=== PATIENT | female | born 1945 | race Caucasian/White ===

== ENCOUNTER 2016-05-10 14:24 | Inpatient (IN) | payer MEDICARE ==
[~2016-05-10] VITALS: Ht 162.6 cm; Wt 54.7 kg
[2016-05-10] VITALS (10 sets, daily range): BP systolic 105–202; BP diastolic 51–138; PULSE 114–150; RESP 14–21; TEMP 93–99.2; O2SAT 92–98
[~2016-05-10 14:24] MED LIST: ASPI325T PO; CIPR500T4 PO; DIGO0.12 PO
[2016-05-10] MEDS ORDERED: SODIUM CHLOR 0.9% 1000 ML INJ 1,000 ML IV SCH ×3 (14:37→18:02)
--- NOTE | 2016-05-10 14:42 | PD ---
HPI Chief Complaint: FALL Time Seen by Provider: 14:42 Travel History International Travel<30 days: No Contact w/Intl Traveler<30days: No History of Present Illness HPI 70-year-old female with a history of atrial fibrillation and prior CVA is brought to the emergency department by EMS for evaluation of fall 3 days ago. The patient states that 3 days ago she was in a bank parking lot taking a walk when she accidentally fell landing on her left knee and hitting her face on the ground. She denies loss of consciousness. States she is not sure why she fell , denies any preceding symptoms of dizziness, chest pain, weakness. Denies tripping over anything. States that EMS came out at the time that she fell and wanted her to come to the emergency room but she refused care and instead went home to her apartment. States that once she got home to her apartment her left knee gave out on her causing her to fall again at home and she has since been on the ground at home for the past 3 days. States that she could not get up due to the severe pain in her left knee. States that she has pain in her left knee and is complaining of feeling cold. Otherwise denies any complaints. Denies any headache, lightheadedness, dizziness, nausea, vomiting, diarrhea, abdominal pain, chest pain, shortness of breath, numbness or tingling. Denies any anticoagulation. PCP is in [place]. No other complaints. PFSH Past Medical History Arthritis: Yes Atrial Fibrillation: Yes Anxiety: Yes Depression: No Heart Rhythm Problems: Yes (ATRIAL FIB.) Cancer: No High Cholesterol: Yes Chest Pain: No Congestive Heart Failure: No Cerebrovascular Accident: Yes Diabetes: No Diminished Hearing: No Endocrine: No GERD: No Genitourinary: No Hepatitis: No Hiatal Hernia: Yes Hypertension: Yes (STATES SHE BELIEVES SHE DOES AT TIMES) Immune Disorder: No Musculoskeletal: Yes Neurologic: Yes Psychiatric: Yes Reproductive: No Respiratory: No Migraines: No Seizures: No Thyroid Disease: No Ulcer: Yes Menopausal: Yes Past Surgical History Abdominal Surgery: No AICD: No Appendectomy: Yes Arteriovenous Shunt: No Cardiac Surgery: No Ear Surgery: No Endocrine Surgery: No Eye Surgery: No Genitourinary Surgery: No Gynecologic Surgery: Yes (HYSTERECTOMY) Hysterectomy: Yes (1985) Insulin Pump: No Joint Replacement: Yes (LEFT HIP) Oral Surgery: No Pacemaker: No Thoracic Surgery: No Other Surgery: Yes (LEFT FEMUR FX 04/29/11 FROM FALL) Social History Alcohol Use: No Tobacco Use: Yes Substance Use: No Allergies-Medications (Allergen,Severity, Reaction): Coded Allergies: Benadryl (Verified Allergy, Mild, hives, 07/26/11) Sulfa (Verified Allergy, Mild, HIVES, 07/26/11) Uncoded Allergies: antihihistamines (Allergy, Mild, hives, 05/02/11) Reported Meds & Prescriptions Reported Meds & Active Scripts Active Cipro (Ciprofloxacin HCl) 500 Mg Tab 500 Mg PO BID 10 Days Reported Digoxin 0.125 mg (Digoxin) 0.125 Mg Tab 0.125 Mg PO DAILY Aspirin 325 Mg Tab (Aspirin) 325 Mg Tab 325 Mg PO DAILY Review of Systems Except as stated in HPI: all other systems reviewed are Neg Physical Exam Narrative GENERAL: Thin frail female patient in no acute distress. SKIN: Few abrasions on her arms and legs. Cool to touch. HEAD: Normocephalic and atraumatic. Bruising to both sides of face, worse on left than right, overlying the zygomatic arch. EYES: No scleral icterus, injection, or drainage. PERRLA. EOMI. No hyphema present. ENT: No septal hematoma or hemotympanum noted. Oropharynx is clear and the airway is patent. NECK: Supple and the trachea is midline. No obvious deformities, crepitus, or midline tenderness noted. CARDIOVASCULAR: Regular rate and rhythm. RESPIRATORY: Breath sounds are equal bilaterally with no accessory muscle use, wheezing, rhonchi, or crackles. GASTROINTESTINAL: Abdomen is soft, non-tender, and nondistended. MUSCULOSKELETAL: Bruising and swelling over left knee and right tib-fib. Decreased range of motion in the left knee, complains of pain with palpation of left knee. Full range of motion right knee and hip. No obvious deformities are present throughout the upper and lower extremities. DP pulses are palpable bilaterally. NEUROLOGICAL: Awake, alert, and oriented. Normal speech and gait. Cranial nerves are grossly intact. Data Data Last Documented VS Vital Signs Date Time Temp Pulse Resp B/P Pulse Ox O2 Delivery O2 Flow Rate FiO2 05/10/16 18:24 138 18 124/68 05/10/16 18:08 Room Air 05/10/16 16:18 96.8 Orders Electrocardiogram (05/10/16 14:37) Complete Blood Count With Diff (05/10/16 14:37) Comprehensive Metabolic Panel (05/10/16 14:37) Creatine Kinase (Cpk) (05/10/16 14:37) Prothrombin Time / Inr (Pt) (05/10/16 14:37) Act Partial Throm Time (Ptt) (05/10/16 14:37) Troponin I (05/10/16 14:37) Lactic Acid Sepsis Protocol (05/10/16 14:37) Urinalysis - C+S If Indicated (05/10/16 14:37) Blood Culture (05/10/16 14:37) Chest, Single Ap (05/10/16 14:37) Ecg Monitoring (05/10/16 14:37) Iv Access Insert/Monitor (05/10/16 14:37) Oximetry (05/10/16 14:37) Sodium Chloride 0.9% Flush (Ns Flush) (05/10/16 14:45) Sodium Chlor 0.9% 1000 Ml Inj (Ns 1000 M (05/10/16 14:37) Sodium Chlor 0.9% 1000 Ml Inj (Ns 1000 M (05/10/16 14:37) Ct Brain W/O Iv Contrast(Rout) (05/10/16 14:37) Ct Cerv Spine W/O Contrast (05/10/16 14:37) Ct Facial Bones W/O Iv Cont (05/10/16 14:37) Apply Cervical Collar (05/10/16 14:37) Femur (Ap & Lat/2vws) (05/10/16 14:37) Tibia/Fibula (Ap/Lat) (05/10/16 14:37) Femur (Ap & Lat/2vws) (05/10/16 14:37) Knee, Complete (4vws) (05/10/16 14:37) Tibia/Fibula (Ap/Lat) (05/10/16 14:37) Digoxin (05/10/16 14:37) Cath For Specimen (05/10/16 16:07) CKMB (05/10/16 14:40) CKMB% (05/10/16 14:40) Diltiazem Inj (Cardizem Inj) (05/10/16 16:45) Vital Signs (Adult) Q15MX4,Q4H (05/10/16 16:31) Crate Tier / Telemetry SHASHI.Q8H (05/10/16 16:31) Cardiac Rhythm SHASHI.Q8H (05/10/16 16:31) ^ Notify Dr: Other (05/10/16 16:31) Diltiazem Inj (Cardizem Inj) (05/10/16 16:45) Collar [place] (05/10/16 ) Urine Culture (05/10/16 16:25) Amoxicil-Clavulanate (Augmentin) (05/10/16 17:15) Sodium Chlor 0.9% 1000 Ml Inj (Ns 1000 M (05/10/16 18:02) Ceftriaxone Inj (Rocephin Inj) (05/10/16 18:30) Diltiazem Inj (Cardizem Inj) (05/10/16 18:30) Admit Order (Ed Use Only) (05/10/16 18:45) Labs Laboratory Tests Test 05/10/16 05/10/16 14:40 16:25 White Blood Count 9.7 TH/MM3 Red Blood Count 4.86 MIL/MM3 Hemoglobin 15.2 GM/DL Hematocrit 46.0 % Mean Corpuscular Volume 94.7 FL Mean Corpuscular Hemoglobin 31.2 PG Mean Corpuscular Hemoglobin 32.9 % Concent Red Cell Distribution Width 15.5 % Platelet Count 195 TH/MM3 Mean Platelet Volume 9.7 FL Neutrophils (%) (Auto) 85.5 % Lymphocytes (%) (Auto) 6.8 % Monocytes (%) (Auto) 7.6 % Eosinophils (%) (Auto) 0.0 % Basophils (%) (Auto) 0.1 % Neutrophils # (Auto) 8.3 TH/MM3 Lymphocytes # (Auto) 0.7 TH/MM3 Monocytes # (Auto) 0.7 TH/MM3 Eosinophils # (Auto) 0.0 TH/MM3 Basophils # (Auto) 0.0 TH/MM3 CBC Comment DIFF FINAL Differential Comment Prothrombin Time 11.7 SEC Prothromb Time International 1.1 RATIO Ratio Activated Partial 24.8 SEC Thromboplast Time Sodium Level 149 MEQ/L Potassium Level 4.5 MEQ/L Chloride Level 110 MEQ/L Carbon Dioxide Level 19.7 MEQ/L Anion Gap 19 MEQ/L Blood Urea Nitrogen 90 MG/DL Creatinine 3.06 MG/DL Estimat Glomerular Filtration 15 ML/MIN Rate Random Glucose 92 MG/DL Lactic Acid Level 3.1 mmol/L Calcium Level 9.8 MG/DL Total Bilirubin 0.9 MG/DL Aspartate Amino Transf 75 U/L (AST/SGOT) Alanine Aminotransferase 45 U/L (ALT/SGPT) Alkaline Phosphatase 86 U/L Total Creatine Kinase 990 U/L Creatine Kinase MB 21.4 NG/ML Creatine Kinase MB % 2.2 % Troponin I 0.40 NG/ML Total Protein 7.5 GM/DL Albumin 4.2 GM/DL Digoxin Level 0.2 NG/ML Urine Color YELLOW Urine Turbidity HAZY Urine pH 7.0 Urine Specific [place] 1.016 Urine Protein 100 mg/dL Urine Glucose (UA) NEG mg/dL Urine Ketones TRACE mg/dL Urine Occult Blood SMALL Urine Nitrite NEG Urine Bilirubin NEG Urine Urobilinogen 2.0 MG/DL Urine Leukocyte Esterase LARGE Urine RBC 8 /hpf Urine WBC 52 /hpf Urine Squamous Epithelial 1 /hpf Cells Urine Amorphous Sediment RARE Urine Bacteria MANY /hpf Microscopic Urinalysis Comment CATH-CULTURE IND MDM Medical Decision Making Medical Screen Exam Complete: Yes Emergency Medical Condition: Yes Differential Diagnosis Rhabdomyolysis versus dehydration versus electrolyte abnormality versus fracture versus intracranial hemorrhage Narrative Course 70-year-old female is brought to the emergency department for evaluation of fall that occurred 3 days ago and she has been unable to get up off the ground since then. The patient's temperature is low at 93F rectally. She is tachycardic with a heart rate of 150 bpm. IV access is obtained, labs been drawn and sent. Patient is administered IV fluids and a bear hugger is applied. EKG shows atrial fibrillation with RVR with a ventricular rate of 157 bpm. CBC is unremarkable. CMP shows dehydration with acute kidney injury, creatinine 3.06, BUN 90, GFR 15. Bicarbonate 19.7. Lactic acid is 3.1. CPK is elevated at 990. CK-MB is elevated at 21.4. Troponin is elevated at 0.40. X-ray of the left femur is negative for any acute abnormalities. X-ray of the left tibia is negative for any acute abnormalities. X-ray of the left knee is negative for any acute abnormalities. X-ray of the right femur is negative for any acute abnormalities. X-ray of the right tibia is negative for any acute abnormalities. CT of the cervical spine is negative for any acute abnormalities. Head CT shows old infarcts and atrophy but is negative for any acute abnormalities. The patient was given 2 diltiazem boluses, first bolus was 15 mg IV and a second bolus was 10 mg IV and she was also placed on a diltiazem drip. Her heart rate has improved to around 116 bpm. She has remained stable here in the emergency department. She has been given 3 L of IV fluid and 1 g of Rocephin IV. She will be admitted to the [facility] for acute kidney injury, A. fib with RVR, rhabdomyolysis and left orbital floor fractures. Physician Communication Physician Communication My attending physician Dr. Santo spoke with [facility] Dr. Galindo who agrees to admit the patient to his service. Diagnosis Primary Impression: CHILO (acute kidney injury) Additional Impressions: Atrial fibrillation with RVR Rhabdomyolysis Qualified Code: M62.82 - Non-traumatic rhabdomyolysis Orbital floor fracture Qualified Code: S02.32XA - Closed fracture of left orbital floor, initial encounter Admitting Information Admitting Physician Requests: Admit Yolanda Guzman May 10, 2016 14:42
[2016-05-10] MEDS ORDERED: SODIUM CHLORIDE 0.9% FLUSH 5 ML FLUSH IVF PRN (14:45)
[2016-05-10 15:29] LABS: AUTOMATED NEUTROPHIL # 8.3 TH/MM3 (1.8-7.7); BASOPHIL % 0.1 % (0.0-2.0); HEMO FLAGS DIFF FINAL; LYMPH % 6.8 % (9.0-44.0); LYMPHOCYTE # 0.7 TH/MM3 (1.0-4.8); MEAN CELL VOLUME 94.7 FL (80.0-100.0); MEAN CORPUSCULAR HEMOGLOBIN 31.2 PG (27.0-34.0); MEAN CORPUSCULAR HGB CONC 32.9 % (32.0-36.0); MONO % 7.6 % (0.0-8.0); NEUT % 85.5 % (16.0-70.0); PLATELET COUNT 195 TH/MM3 (150-450); RED BLOOD COUNT 4.86 MIL/MM3 (4.00-5.30); RED CELL DISTRIBUTION WIDTH 15.5 % (11.6-17.2); WHITE BLOOD COUNT 9.7 TH/MM3 (4.0-11.0)
[2016-05-10 15:39] LABS: INTERNATIONAL NORMALIZED RATIO 1.1 RATIO; PROTHROMBIN TIME - PATIENT 11.7 SEC (9.8-11.6)
[2016-05-10 15:42] LABS: APTT (PATIENT) 24.8 SEC (24.3-30.1)
[2016-05-10 16:00] LABS: ALT (GPT) 45 U/L (10-53); ANION GAP 19 MEQ/L (5-15); AST (GOT) 75 U/L (15-37); BICARBONATE 19.7 MEQ/L (21.0-32.0); BLOOD UREA NITROGEN 90 MG/DL (7-18); CHLORIDE 110 MEQ/L (98-107); GLOMERULAR FILTRATION RATE 15 ML/MIN (>89); POTASSIUM 4.5 MEQ/L (3.5-5.1); SODIUM (NA) 149 MEQ/L (136-145)
[2016-05-10 16:13] LABS: ALKALINE PHOSPHATASE 86 U/L (45-117); CREATINE KINASE 990 U/L (26-192); DIGOXIN 0.2 NG/ML (0.8-2.0); TOTAL BILIRUBIN ADULT 0.9 MG/DL (0.2-1.0)
--- NOTE | 2016-05-10 16:21 | RADRPT ---
EXAM DATE/TIME: 05/10/2016 15:10 [facility] COMPARISON: No previous studies available for comparison. INDICATIONS : Patient fell 3 days ago and was found today on ground. Complains of shortness of breath. MEDICAL HISTORY : A-Fib. SURGICAL HISTORY : None. ENCOUNTER: Initial ACUITY: 1 day PAIN SCORE: 0/10 LOCATION: chest FINDINGS: A single view of the chest demonstrates the lungs to be symmetrically aerated without evidence of mas s, infiltrate or effusion. The cardiomediastinal contours are unremarkable. Osseous structures are intact. CONCLUSION: No acute disease. Gt Sosa MD on May 10, 2016 at 16:19 Board Certified Radiologist. This report was verified electronically.
--- NOTE | 2016-05-10 16:23 | RADRPT ---
EXAM DATE/TIME: 05/10/2016 15:16 [facility] COMPARISON: No previous studies available for comparison. INDICATIONS : Patient fell 3 days ago. Complains of right femur pain. MEDICAL HISTORY : None. SURGICAL HISTORY : None. ENCOUNTER: Initial ACUITY: 3 days PAIN SCORE: 5/10 LOCATION: Right Femur FINDINGS: No fracture is seen. There is sclerosis of the medial right femoral head without collapse. The hip an d knee joints are normally aligned. CONCLUSION: No acute fracture is seen. There is sclerosis of the medial femoral head likely related to avascular necrosis without collapse. Gt Sosa MD on May 10, 2016 at 16:20 Board Certified Radiologist. This report was verified electronically.
--- NOTE | 2016-05-10 16:24 | RADRPT ---
EXAM DATE/TIME: 05/10/2016 15:17 [facility] COMPARISON: No previous studies available for comparison. INDICATIONS : Patient fell 3 days ago. Complains of left femur pain. MEDICAL HISTORY : None. SURGICAL HISTORY : None. ENCOUNTER: Initial ACUITY: 1 day PAIN SCORE: 5/10 LOCATION: Left Femur FINDINGS: There is a bipolar hip prosthesis in place. There is a plate along the lateral aspect of the proximal and mid femur. An acute fracture is not seen. The left hip prosthesis is normally aligned. The left knee joint is normal alignment. The bones are osteopenic. CONCLUSION: No acute abnormalities seen. Gt Sosa MD on May 10, 2016 at 16:21 Board Certified Radiologist. This report was verified electronically.
--- NOTE | 2016-05-10 16:25 | RADRPT ---
EXAM DATE/TIME: 05/10/2016 15:20 [facility] COMPARISON: No previous studies available for comparison. INDICATIONS : Patient fell 3 days ago. Complains of right tib/fib pain. MEDICAL HISTORY : None. SURGICAL HISTORY : None. ENCOUNTER: Initial ACUITY: 3 days PAIN SCORE: 5/10 LOCATION: Right Tib/fib FINDINGS: Two view examination of the right tibia demonstrates no evidence of fracture or dislocation. The bone s are osteopenic. The soft tissue structures are intact. Calcifications are seen in the soft tissues likely related to phleboliths. CONCLUSION: No acute disease. Gt Sosa MD on May 10, 2016 at 16:23 Board Certified Radiologist. This report was verified electronically.
--- NOTE | 2016-05-10 16:26 | RADRPT ---
EXAM DATE/TIME: 05/10/2016 15:21 [facility] COMPARISON: No previous studies available for comparison. INDICATIONS : Patient fell 3 days ago. Complains of left tib/fib pain. MEDICAL HISTORY : None. SURGICAL HISTORY : None. ENCOUNTER: Initial ACUITY: 3 days PAIN SCORE: 5/10 LOCATION: Left Tib/Fib FINDINGS: Two view examination of the left tibia demonstrates no evidence of fracture or dislocation. The bones are osteopenic. Vascular calcifications are seen. CONCLUSION: No acute disease. Gt Sosa MD on May 10, 2016 at 16:23 Board Certified Radiologist. This report was verified electronically.
--- NOTE | 2016-05-10 16:26 | RADRPT ---
EXAM DATE/TIME: 05/10/2016 15:23 [facility] COMPARISON: No previous studies available for comparison. INDICATIONS : Patient fell 3 days ago. Complains of left knee pain. MEDICAL HISTORY : None. SURGICAL HISTORY : None. ENCOUNTER: Initial ACUITY: 3 days PAIN SCORE: 5/10 LOCATION: Left Knee FINDINGS: Four view examination of the left knee demonstrates no evidence of fracture or dislocation. The bones are osteopenic. The articular surfaces are intact. The suprapatellar soft tissues have a normal con figuration. CONCLUSION: No acute disease. Gt Sosa MD on May 10, 2016 at 16:24 Board Certified Radiologist. This report was verified electronically.
--- NOTE | 2016-05-10 16:27 | RADRPT ---
EXAM DATE/TIME: 05/10/2016 15:57 [facility] COMPARISON: No previous studies available for comparison. INDICATIONS : Fall; head, neck, and facial pain. RADIATION DOSE: 56.35 CTDIvol (mGy) MEDICAL HISTORY: Hypertension. Cerebrovascular disease. SURGICAL HISTORY: Appendectomy. Hysterectomy. ENCOUNTER: Initial ACUITY: 1 day PAIN SCALE: 10/10 LOCATION: cranial TECHNIQUE: Multiple contiguous axial images were obtained of the head. Using automated exposure control and adj ustment of the mA and/or kV according to patient size, radiation dose was kept as low as reasonably a chievable to obtain optimal diagnostic quality images. FINDINGS: There is extensive central and cortical atrophy with old infarct in the right temporal region and lef t parietal occipital region. There is no parenchymal hemorrhage. There are no extraaxial fluid collections rama reciated. CONCLUSION: Atrophy, old infarcts. Facial bones CT is pending. Fuentes Pal MD FACR on May 10, 2016 at 16:19 Board Certified Radiologist. This report was verified electronically.
[2016-05-10 16:28] LABS: CKMB 21.4 NG/ML (0.5-3.6)
--- NOTE | 2016-05-10 16:31 | RADRPT ---
EXAM DATE/TIME: 05/10/2016 15:58 [facility] COMPARISON: No previous studies available for comparison. INDICATIONS : Fall; head, neck, and facial pain. RADIATION DOSE: 21.69 CTDIvol (mGy) MEDICAL HISTORY : Hypertension. Cerebrovascular disease. SURGICAL HISTORY : Appendectomy. Hysterectomy. ENCOUNTER: Initial ACUITY: 1 day PAIN SCALE: 10/10 LOCATION: neck TECHNIQUE: Volumetric scanning of the cervical spine was performed. Multiplanar reconstructions in the sagittal, coronal and oblique axial planes were performed. Using automated exposure control and adjustment o f the mA and/or kV according to patient size, radiation dose was kept as low as reasonably achievable to obtain optimal diagnostic quality images. FINDINGS: Scans were obtained from C1 to T1. There are degenerative changes at C1 and C2. Fracture is not appreciated. C2-C3: The bony spinal canal is normal in size. No evidence of disc bulge or herniation. The neural forami na are bilaterally patent. C3-C4: Very mild facet disease present without significant spinal stenosis or neural foramina encroachment. C4-C5: Mild facet disease is present on the left without significant spinal stenosis. There is mild neural foramina encroachment on the left. C5-C6: Moderate uncinate ridging is present with bilateral neural foramina encroachment and mild spinal sten osis. C6-C7: Mild uncinate ridging is present with minimal left-sided neural foramina encroachment. C7-T1: Unremarkable. CONCLUSION: Degenerative changes as described above. Fracture is not appreicated. Fuentes Pal MD FACR on May 10, 2016 at 16:25 Board Certified Radiologist. This report was verified electronically.
[2016-05-10] MEDS ORDERED: DILTIAZEM HCL 25 MG/5 ML VIAL IV ONE ×2 (16:45→18:30)
[2016-05-10 16:49] LABS: BACTERIA, URINE MANY /hpf; BLOOD, URINE SMALL (NEG); GLUCOSE,URINE NEG (NEG); KETONE, URINE TRACE mg/dL (NEG); NITRITE,URINE NEG (NEG); SQUAMOUS EPITHELIAL CELL URINE 1 /hpf (0-5); URINE COLOR YELLOW (YELLW/STRAW)
[2016-05-10 16:55] LABS: COMMENT (UR) CATH-CULTURE IND; CULTURE IF INDICATED CATH CULTURE IND
--- NOTE | 2016-05-10 16:57 | RADRPT ---
EXAM DATE/TIME: 05/10/2016 15:59 [facility] COMPARISON: No previous studies available for comparison. INDICATIONS : Fall; head, neck, and facial pain. RADIATION DOSE: 21.69 CTDIvol (mGy) MEDICAL HISTORY : Hypertension. Cerebrovascular disease. SURGICAL HISTORY : Hysterectomy. Appendectomy. ENCOUNTER: Initial ACUITY: 1 day PAIN SCORE: 10/10 LOCATION: facial TECHNIQUE: Volumetric scanning of the facial bones was performed. Using automated exposure control and adjustme nt of the mA and/or kV according to patient size, radiation dose was kept as low as reasonably achiev able to obtain optimal diagnostic quality images. FINDINGS: ORBITS: A mildly comminuted slightly depressed fracture is seen along the superolateral and lateral left orbi akiko wall. There is no evidence of hematoma within the orbit. Focal soft tissue hematoma is seen along the fracture. Nondisplaced fracture are seen along the floor of the left orbit. Globes are intact. NASAL BONE: The nasal bone and maxillary spine are intact ZYGOMATIC ARCHES: Symmetric without evidence of fracture. SINUSES: A small soft tissue mass is associated with the left orbital floor fracture. There is no obvious musc le entrapment however orbital fat entrapment may be present. The ethmoid and frontal sinuses are inta ct. No air-fluid levels seen. NASAL CAVITY: The nasal septum is intact and midline. The lacrimal ducts are intact. SOFT TISSUES: No radiopaque foreign bodies seen. No soft-tissue swelling is seen. INTRACRANIAL: No intracranial air seen. CRIBIFORM PLATE: Grossly intact. CONCLUSION: Left lateral orbital wall and orbital floor fractures with associated subcutaneous hematoma. No other significant abnormality. Jordan Carlin MD on May 10, 2016 at 16:41 Board Certified Radiologist. This report was verified electronically.
[2016-05-10 17:15] LABS: LACTIC ACID GHOST NOT REPORTABLE
[2016-05-10] MEDS ORDERED: AMOXICILLIN/CLAVULANATE K 875 MG TAB PO ONE (17:15)
[2016-05-10] MEDS: DILTIAZEM INJ 125 MG in SODIUM CHLORIDE 0.9% INJ 100 ML IV SCH (17:49)
[2016-05-10] MEDS ORDERED: cefTRIAXone INJ 1,000 MG in SODIUM CHLORIDE 0.9% INJ 100 ML IV ONE (18:30)
[2016-05-10] MEDS ORDERED: DIGO0.12 PO (20:17)
[2016-05-10] MEDS ORDERED: ACETAMINOPHEN/HYDROcodone 325 MG/5 MG TAB PO PRN (20:45)
--- NOTE | 2016-05-10 20:45 | HHI.HP ---
HPI Service Critical Care Medicine Primary Care Physician No Primary Care Physician Admission Diagnosis AF w/ RVR, CHILO, Rhabdomyolysis, Left Orbital Floor Fractures, Fall Diagnosis: Travel History International Travel<30 Days: No Contact w/Intl Traveler <30 Da: No Traveled to Known Affected Are: No History of Present Illness 70 yo female with past medical history of atrial fibrillation, prior stroke. She is not on chronic anticoagulation. She was walking down the sidewalk when she fell and injured her left knee. She walks with a cane at baseline and she continued to try to ambulate to her home. She lives alone. He states that she then tried to continue to ambulate better to her "knee gave out" and she fell to the floor. Her friend then came to the home and found her on the floor, disheveled, in the urine and feces. She was somewhat confused but was able to answer questions. Currently patient is able to answer all questions and her friend indicates that her mental status. Improved significantly since earlier in the day. Patient denies last of consciousness. She denies chest pain, shortness of breath, palpitations. She is on digoxin for atrial fibrillation but has been unable to take her medications for a few days. She presents to the emergency department with A. fib RVR and hypertensive to 155/ 70. She did have a pressure of 202/138 but reportedly is in was in severe pain due to repositioning. Subsequent blood pressures have been in the 120s over 60s. ED workup included CT brain and C-spine which were negative. CT maxillofacial demonstrated the left lateral orbital wall and orbital floor fractures. There is no evidence of entrapment. X-ray of bilateral femur and tib-fib are negative. X-ray left knee is negative. Chest x-ray is clear Past Family Social History Allergies: Coded Allergies: Benadryl (Verified Allergy, Mild, hives, 07/26/11) Sulfa (Verified Allergy, Mild, HIVES, 07/26/11) Uncoded Allergies: antihihistamines (Allergy, Mild, hives, 05/02/11) Past Medical History Atrial fibrillation Past Surgical History Hysterectomy Left femur ORIF 04/29/11 Left hip replacement Appendectomy She has not had a recent colonoscopy Reported Medications Digoxin 0.125 mg by mouth daily Family History Father had history of atrial fibrillation and at age 78 from a stroke Mother at age 61 due to complications of alcoholism. Social History She has smoked for many years and is ongoing smoker of 2-3 cigarettes per day She used to drink daily "a long time ago" but denies any recent alcohol use Denies use of illicit drugs Lives alone Ambulates with a cane Physical Exam Vital Signs Vital Signs Date Time Temp Pulse Resp B/P Pulse Ox O2 Delivery O2 Flow Rate FiO2 05/10/16 20:08 97.6 128 18 115/72 96 Room Air 05/10/16 19:22 95.4 114 14 122/62 92 Room Air 05/10/16 18:24 138 18 124/68 05/10/16 18:08 150 18 110/57 Room Air 05/10/16 17:48 133 20 202/138 Room Air 05/10/16 16:18 96.8 146 18 155/70 05/10/16 14:29 93.0 150 21 Physical Exam Core temp 95.4 heart rate 110, A. fib on the monitor blood pressure 115/72 sats 100% on 2 L nasal cannula GENERAL: Elderly-appearing female who is disheveled and sitting up in ED gurney, alert and interactive, laying under Haley Hugger. Friend is at bedside requesting pain medication on her behalf. SKIN: Warm and dry. There is abrasion left eyelid. L periorbital ecchymosis with ecchymosis extending down left side of face to mandible. HEAD: Normocephalic. EYES: Pupils equal and round, reactive. EOMI intact, normal upward gaze without evidence of entrapment. Mild left conjunctival injection. No drainage.. ENT: Some dried blood at left naris. No septal hematoma.. Mucous membranes pink and moist. NECK: Trachea midline. Jugular veins are flat CARDIOVASCULAR: Irregularly irregular with rate 110. There is a 4/6 systolic murmur right sternal border RESPIRATORY: Breathing comfortably on nasal cannula. Clear to auscultation bilaterally. No wheezes Rales or rhonchi GASTROINTESTINAL: Abdomen soft, non-tender, nondistended. Bowel sounds are present. MUSCULOSKELETAL: Extremities without clubbing, cyanosis. There is large amount of ecchymoses overlying the right knee and medial aspect of left proximal tibia. Multiple ecchymoses of bilateral anterior tibia. NEUROLOGICAL: Awake and alert. No obvious cranial nerve deficits. Normal tongue protrusion. Extraocular movements intact. Normal speech. She is oriented to hospital, self, circumstance, year. Strength is 5 out of 5 in all extremities. Sensation is intact. Strength is 5 out of 5 plantar flexion right lower extremity. She is able to plantarflex/dorsiflex left foot against resistance but limited due to pain 4/5. Dorsalis pedis pulses intact Laboratory Laboratory Tests Test 05/10/16 05/10/16 05/10/16 14:40 16:25 19:50 White Blood Count 9.7 Red Blood Count 4.86 Hemoglobin 15.2 Hematocrit 46.0 Mean Corpuscular Volume 94.7 Mean Corpuscular Hemoglobin 31.2 Mean Corpuscular Hemoglobin 32.9 Concent Red Cell Distribution Width 15.5 Platelet Count 195 Mean Platelet Volume 9.7 Neutrophils (%) (Auto) 85.5 Lymphocytes (%) (Auto) 6.8 Monocytes (%) (Auto) 7.6 Eosinophils (%) (Auto) 0.0 Basophils (%) (Auto) 0.1 Neutrophils # (Auto) 8.3 Lymphocytes # (Auto) 0.7 Monocytes # (Auto) 0.7 Eosinophils # (Auto) 0.0 Basophils # (Auto) 0.0 CBC Comment DIFF FINAL Differential Comment Prothrombin Time 11.7 Prothromb Time International 1.1 Ratio Activated Partial 24.8 Thromboplast Time Sodium Level 149 Potassium Level 4.5 Chloride Level 110 Carbon Dioxide Level 19.7 Anion Gap 19 Blood Urea Nitrogen 90 Creatinine 3.06 Estimat Glomerular Filtration 15 Rate Random Glucose 92 Lactic Acid Level 3.1 1.7 Calcium Level 9.8 Total Bilirubin 0.9 Aspartate Amino Transf 75 (AST/SGOT) Alanine Aminotransferase 45 (ALT/SGPT) Alkaline Phosphatase 86 Total Creatine Kinase 990 Creatine Kinase MB 21.4 Creatine Kinase MB % 2.2 Troponin I 0.40 Total Protein 7.5 Albumin 4.2 Digoxin Level 0.2 Urine Color YELLOW Urine Turbidity HAZY Urine pH 7.0 Urine Specific [place] 1.016 Urine Protein 100 Urine Glucose (UA) NEG Urine Ketones TRACE Urine Occult Blood SMALL Urine Nitrite NEG Urine Bilirubin NEG Urine Urobilinogen 2.0 Urine Leukocyte Esterase LARGE Urine RBC 8 Urine WBC 52 Urine Squamous Epithelial 1 Cells Urine Amorphous Sediment RARE Urine Bacteria MANY Microscopic Urinalysis Comment CATH-CULTURE IND Date/Time Procedure Status Source Growth 05/10/16 16:25 Urine Culture Received Urine Catheterized Urine Pending 05/10/16 14:40 Aerobic Blood Culture Received Blood Peripheral Pending 05/10/16 14:40 Anaerobic Blood Culture Received Blood Peripheral Pending Result Diagram: 05/10/16 1440 05/10/16 1440 Assessment and Plan Assessment and Plan NEURO: Fall Pain History of stroke CT brainatrophy. Old right temporal and left parieto-occipital infarcts. No acute abnormality CT C-spineno acute fracture Lortab as needed for pain. Morphine as needed for breakthrough pain. RESP: Nasal cannula wean as tolerated. Incentive spirometry every hour CV: Atrial fibrillation with RVR Patient is chronically on digoxin at home. She states she is no longer on home aspirin. Gave aspirin 160 milligrams 1. Digoxin 0.125 mg IV now. Will continue with this dose every 48 hours based on renal function, however I suspect she may need a dose sooner as I anticipate her renal function will improve quickly with rehydration. Cardizem drip for rate control. Consider transition to by mouth Cardizem in a.m. if needed to achieve rate control. Serial cardiac markers, f/u echo. GI: Nothing by mouth Colace milligrams by mouth twice a day for bowel regimen. FEN/RENAL: Acute kidney injury Lactic acidemia Elevated CK Lactic acidosis cleared Arechiga placement, Monitor I/O closely. Monitor electrolytes. F/u BMP ID: UTI Urine culture pending. Chest x-ray clear. Blood culture pending. Received Rocephin 1 g in the ED. Will continue Rocephin 1 g daily for UTI and orbital fracture. Tdap. HEME: No acute hematologic issues. CBC in a.m. MSK: Acute L knee pain Xray left hip - no fracture Xray left knee - no fracture Patient complains of severe knee pain, knee "giving out" and unable to ambulate. Will obtain MRI knee if able based on MRI checklist. Pt had MRI in 2007. Consider ortho consult depending on findings L knee immobilizer MAXILLOFACIAL: Acute fracture left lateral orbit and orbital floor, no clinical evidence of entrapment on exam. Facial trauma consult. ENDO: Euglycemic. PROPH: Protonix 40 mg PO daily for stress ulcer prophylaxis. Heparin 5000 units subcutaneous every 12 hours for DVT prophylaxis. ACCESS: Peripheral IV providing adequate access at this time. PT consult. I have discussed CODE STATUS with patient at bedside. She is alert and appears capacitated for medical decision-making. She states that she is DNR for pulseless arrest. She states that she would not want to be intubated for respiratory failure at this time. Will admit to CICU. Consult hospitalist to assume care 05/11/16 H and P Level 3 Cayla Carpenter MD May 10, 2016 20:45
[2016-05-10] MEDS ORDERED: MISCELLANEOUS NURSING INFORMATION XX SCH (21:00)
[2016-05-10] MEDS ORDERED: ONDANSETRON HCL 4 MG/2 ML VIAL IV PRN (21:00)
[2016-05-10] MEDS ORDERED: SODIUM CHLORIDE 0.9% FLUSH 5 ML FLUSH IV FLUSH PRN (21:00)
[2016-05-10] MEDS ORDERED: MORPHINE SULFATE 4 MG/ML INJ IV PRN (21:00)
[2016-05-10] MEDS ORDERED: CHLORHEXIDINE GLUCONATE 2 % 1 PACK (2 CLOTHS) TOP PRN (21:00)
[2016-05-10] MEDS ORDERED: ACETAMINOPHEN 325 MG TAB PO PRN (21:00)
[2016-05-10] MEDS ORDERED: RESP: ALBUTEROL 2.5 MG/3 ML NEB (PRN) INH (21:00)
[2016-05-10] MEDS ORDERED: LACTATED RINGER'S 1000 ML INJ 1,000 ML IV SCH ×2 (21:30→22:00)
[2016-05-10] MEDS ORDERED: DEXTROSE 5%-LACTATED RING INJ 1,000 ML IV SCH (22:15)
[2016-05-10] MEDS ORDERED: DIPHTH/TETANUS/ACEL PERTUSSIS (BOOSTER) 0.5 ML VIAL/PFS IM ONE (22:15)
[2016-05-10] MEDS: HEPARIN SODIUM - SQ 10,000 UNITS/ML VIAL SQ SCH (23:00)
[2016-05-10] MEDS ORDERED: ASPIRIN 81 MG CHEW TAB CHEW ONE (23:00)
[2016-05-10] MEDS: DOCUSATE SODIUM 100 MG CAP PO SCH (23:00)
[2016-05-10] MEDS ORDERED: DIGOXIN 0.5 MG/2 ML VIAL IV PUSH SCH (23:00)
[2016-05-10] MEDS: SODIUM CHLORIDE 0.9% FLUSH 5 ML FLUSH IV FLUSH SCH (23:00)
[2016-05-10 23:58] LABS: CKMB 17.4 NG/ML (0.5-3.6)
[2016-05-11] VITALS (13 sets, daily range): BP systolic 95–114; BP diastolic 48–65; PULSE 92–126; RESP 13–20; TEMP 97.7–99; O2SAT 96–99
[2016-05-11] MEDS: CHLORHEXIDINE GLUCONATE 2 % 1 PACK (2 CLOTHS) TOP SCH (04:00)
[2016-05-11 04:06] LABS: AUTOMATED NEUTROPHIL # 2.5 TH/MM3 (1.8-7.7); BASOPHIL % 0.1 % (0.0-2.0); EOSINOPHIL % 0.5 % (0.0-4.0); HEMATOCRIT 40.2 % (35.0-46.0); HEMO FLAGS DIFF FINAL; LYMPH % 7.9 % (9.0-44.0); LYMPHOCYTE # 0.2 TH/MM3 (1.0-4.8); MEAN CELL VOLUME 94.1 FL (80.0-100.0); MEAN CORPUSCULAR HEMOGLOBIN 31.4 PG (27.0-34.0); MEAN CORPUSCULAR HGB CONC 33.3 % (32.0-36.0); MONO % 7.1 % (0.0-8.0); NEUT % 84.4 % (16.0-70.0); PLATELET COUNT 138 TH/MM3 (150-450); RED BLOOD COUNT 4.27 MIL/MM3 (4.00-5.30)
[2016-05-11 04:30] LABS: ALT (GPT) 32 U/L (10-53); ANION GAP 16 MEQ/L (5-15); AST (GOT) 56 U/L (15-37); BICARBONATE 17.7 MEQ/L (21.0-32.0); BLOOD UREA NITROGEN 81 MG/DL (7-18); CHLORIDE 107 MEQ/L (98-107); GLOMERULAR FILTRATION RATE 23 ML/MIN (>89); MAGNESIUM 1.7 MG/DL (1.5-2.5); POTASSIUM 3.8 MEQ/L (3.5-5.1); SODIUM (NA) 141 MEQ/L (136-145)
[2016-05-11 04:50] LABS: ALKALINE PHOSPHATASE 64 U/L (45-117); CREATINE KINASE 797 U/L (26-192); TOTAL BILIRUBIN ADULT 0.7 MG/DL (0.2-1.0)
[2016-05-11 05:03] LABS: CKMB 17.2 NG/ML (0.5-3.6)
[2016-05-11] MEDS: DILTIAZEM INJ 125 MG in SODIUM CHLORIDE 0.9% INJ 100 ML IV SCH (05:09)
--- NOTE | 2016-05-11 05:40 | RADRPT ---
EXAM DATE/TIME: 05/11/2016 03:13 [facility] COMPARISON: CHEST SINGLE AP, May 10, 2016, 15:10. INDICATIONS : Shortness of breath, possible pulmonary disease. MEDICAL HISTORY : Hypertension. Cerebrovascular disease. SURGICAL HISTORY : Hysterectomy. Appendectomy. ENCOUNTER: Subsequent ACUITY: 2 days PAIN SCORE: Non-responsive. LOCATION: Bilateral chest FINDINGS: Single AP view of the chest. Prominent skin folds on the right. Lungs are clear. Cardiomediastinal si lhouette within normal limits. No evidence of pleural effusion or pneumothorax. CONCLUSION: No acute cardiopulmonary disease identified. Ranjeet Lopez MD on May 11, 2016 at 5:37 Board Certified Radiologist. This report was verified electronically.
[2016-05-11] MEDS: PANTOPRAZOLE SOD 40 MG DELAYED RELEASE TAB PO SCH (09:00)
[2016-05-11] MEDS: DOCUSATE SODIUM 100 MG CAP PO SCH ×2 (09:00→20:44)
[2016-05-11] MEDS: HEPARIN SODIUM - SQ 10,000 UNITS/ML VIAL SQ SCH ×2 (09:00→20:44)
[2016-05-11] MEDS: SODIUM CHLORIDE 0.9% FLUSH 5 ML FLUSH IV FLUSH SCH ×2 (09:00→20:44)
[2016-05-11] MEDS: SODIUM CHLOR 0.9% 1000 ML INJ 1,000 ML IV SCH (12:15)
--- NOTE | 2016-05-11 12:33 | HHI.PR ---
Subjective Remarks Follow-up paroxysmal atrial fibrillation with rapid ventricular response/status post mechanical fall/left orbital fracture/UTI 05/11/16-patient seen and examined, denies any chest pain or shortness of breath however currently in A. fib and on Cardizem drip Objective Vitals Vital Signs Date Time Temp Pulse Resp B/P Pulse Ox O2 Delivery O2 Flow Rate FiO2 05/11/16 10:29 102 05/11/16 08:00 98.3 102 16 95/59 99 05/11/16 06:00 97 05/11/16 04:00 98.7 115 13 103/56 96 05/11/16 04:00 115 05/11/16 02:00 126 05/11/16 00:36 99.0 119 16 104/65 100 2 05/10/16 23:15 120 16 110/59 98 Nasal Cannula 2 05/10/16 22:40 99.2 143 18 105/51 98 Nasal Cannula 2 05/10/16 21:00 128 16 198/60 98 Nasal Cannula 2 05/10/16 20:08 97.6 128 18 115/72 96 Room Air 05/10/16 19:22 95.4 114 14 122/62 92 Room Air 05/10/16 18:24 138 18 124/68 05/10/16 18:08 150 18 110/57 Room Air 05/10/16 17:48 133 20 202/138 Room Air 05/10/16 16:18 96.8 146 18 155/70 05/10/16 14:29 93.0 150 21 I/O 05/10/16 05/10/16 05/10/16 05/11/16 05/11/16 05/11/16 07:00 15:00 23:00 07:00 15:00 23:00 Intake Total 661 ml Output Total 300 ml Balance 361 ml Intake IV Total 661 ml Output Urine Total 300 ml # Bowel Movements 0 Result Diagram: 05/11/16 0327 05/11/16 0327 Imaging Last Impressions Chest X-Ray 05/11/16 0000 Signed Impressions: Service Date/Time: April 03:13 - CONCLUSION: No acute cardiopulmonary disease identified. Ranjeet Lopez MD Tibia/Fibula X-Ray 05/10/16 1437 Signed Impressions: Service Date/Time: Tuesday, May 10, 2016 15:21 - CONCLUSION: No acute disease. Gt Sosa MD Maxillofacial CT 05/10/161436 Signed Impressions: Service Date/Time: Tuesday, May 10, 2016 15:59 - CONCLUSION: Left lateral orbital wall and orbital floor fractures with associated subcutaneous hematoma. No other significant abnormality. Jordan Carlin MD Knee X-Ray 05/10/161436 Signed Impressions: Service Date/Time: Tuesday, May 10, 2016 15:23 - CONCLUSION: No acute disease. Gt Sosa MD Head CT [id number]/10/161436 Signed Impressions: Service Date/Time: Tuesday, May 10, 2016 15:57 - CONCLUSION: Atrophy, old infarcts. Facial bones CT is pending. Fuentes Pal MD FACR Femur X-Ray 05/10/161436 Signed Impressions: Service Date/Time: Tuesday, May 10, 2016 15:17 - CONCLUSION: No acute abnormalities seen. Gt Sosa MD Objective Remarks GENERAL: ANd SKIN: Warm and dry. HEAD: Normocephalic. EYES: No scleral icterus. No injection or drainage. Ecchymose left NECK: Supple, trachea midline. No JVD or lymphadenopathy. CARDIOVASCULAR: Irregular Regular rate and rhythm without murmurs, gallops, or rubs. RESPIRATORY: Breath sounds equal bilaterally. No accessory muscle use. GASTROINTESTINAL: Abdomen soft, non-tender, nondistended. MUSCULOSKELETAL: No cyanosis, or edema. BACK: Nontender without obvious deformity. No CVA tenderness. A/P Problem List: (1) Atrial fibrillation with RVR ICD Code: I48.91 Status: Acute (2) CHILO (acute kidney injury) ICD Code: N17.9 Status: Acute (3) Rhabdomyolysis ICD Code: M62.82 Status: Acute (4) Orbital floor fracture ICD Code: S02.30XA Status: Acute Assessment and Plan 70-year-old female with Fall-status post mechanical fall History of stroke CT brainatrophy. Old right temporal and left parieto-occipital infarcts. No acute abnormality CT C-spineno acute fracture Continue pain management accordingly PT consult to treat and eval Paroxysmal Atrial fibrillation with RVR ACS ruled out per protocol with serial cardiac enzyme and EKG Currently on Cardizem drip, digoxin 0.125 every 48 and monitor level pending 2- D echo as well as cardiology consultation Not a candidate for oral anticoagulation secondary to increased risk of fall, start aspirin for stroke prevention Sotalol contraindicated secondary to QTc Acute kidney injury Lactic acidemia Elevated CK-rhabdomyolysis Lactic acidosis cleared Continue IV fluid hydration Monitor CK UTI continue Rocephin 1 g daily pending urine culture Acute L knee pain Xray left hip - no fracture Xray left knee - no fracture Check bilateral ankles x-ray MRI contraindicated L knee immobilizer Acute fracture left lateral orbit and orbital floor, no clinical evidence of entrapment on exam. Facial trauma consult. Ophthalmology consulted PROPH: Protonix 40 mg PO daily for stress ulcer prophylaxis. Heparin 5000 units subcutaneous every 12 hours for DVT prophylaxis. Problem Qualifiers (1) Rhabdomyolysis: Qualified Code: M62.82 - Non-traumatic rhabdomyolysis (2) Orbital floor fracture: Qualified Code: S02.32XA - Closed fracture of left orbital floor, initial encounter Guillermo Dumont MD May 11, 2016 12:33
--- NOTE | 2016-05-11 12:46 | EC ---
Study Study Date:05/11/2016 STUDY CONCLUSIONS SUMMARY - Left ventricle: The cavity size was dilated. Wall thickness was normal. Systolic function was severely reduced by visual assessment. The estimated ejection fraction was in the range of 25% to 30%. Diffuse hypokinesis. - Aortic valve: Transvalvular velocity was increased less than expected, due to low cardiac output. There was critical stenosis. Moderate to severe regurgitation. Valve area: 0.3cm^2(VTI). Valve area: 0.45cm^2 (Vmax). - Mitral valve: Calcified annulus. Moderately calcified leaflets, . Mild regurgitation. - Left atrium: The atrium was moderately dilated. - Right atrium: The atrium was mildly dilated. - Atrial septum: The septum bowed from left to right, consistent with increased left atrial pressure. - Tricuspid valve: Mild regurgitation. If LV function is below 40, please consider prescribing an ACEI or ARB or document rationale for non-use. PROCEDURE DATA STUDY STATUS: Elective. Procedure: Transthoracic echocardiography. Image quality was good. Scanning was performed from the parasternal, apical, and subcostal acoustic windows. Study completion: The patient tolerated the procedure well. Transthoracic echocardiography. M-mode, complete 2D, complete spectral Doppler, and color Doppler. Patient status: Inpatient. CARDIAC ANATOMY LEFT VENTRICLE: The cavity size was dilated. Wall thickness was normal. Systolic function was severely reduced by visual assessment. The estimated ejection fraction was in the range of 25% to 30%. Diffuse hypokinesis. AORTIC VALVE: Probably trileaflet; mildly thickened, severely calcified leaflets. Doppler: Transvalvular velocity was increased less than expected, due to low cardiac output. There was critical stenosis. Moderate to severe regurgitation. Valve area: 0.3cm^2(VTI). Valve area: 0.45cm^2 (Vmax). Mean gradient: 34mm Hg (S). Peak gradient: 60mm Hg (S). AORTA: Aortic root: The aortic root was poorly visualized and normal in size. MITRAL VALVE: Calcified annulus. Moderately calcified leaflets, . Doppler: Transvalvular velocity was within the normal range. There was no evidence for stenosis. Mild regurgitation. LEFT ATRIUM: The atrium was moderately dilated. ATRIAL SEPTUM: The septum bowed from left to right, consistent with increased left atrial pressure. RIGHT VENTRICLE: The cavity size was normal. Wall thickness was normal. PULMONIC VALVE: Doppler: Transvalvular velocity was within the normal range. There was no evidence for stenosis. No regurgitation. TRICUSPID VALVE: Structurally normal valve. Doppler: Transvalvular velocity was within the normal range. Mild regurgitation. PULMONARY ARTERY: The main pulmonary artery was normal-sized. Systolic pressure was within the normal range. RIGHT ATRIUM: The atrium was mildly dilated. PERICARDIUM: There was no pericardial effusion. SYSTEMIC VEINS: Inferior vena cava: The vessel was normal in size. BASIC MEASUREMENTS ADULT Normal Left ventricle LV internal dimension, ED, chordal level, 47.1 mm 43-52 PLAX LV internal dimension, ES, chordal level, *41.7 mm 23-38 PLAX Fractional shortening, chordal level, PLAX *11 % >29 LV posterior wall thickness, ED 10.2 mm IVS/LVPW ratio, ED *1.42 <1.3 Ventricular septum Septal thickness, ED 14.5 mm Aortic valve Leaflet separation *10 mm 15-26 Right ventricle RV internal dimension, ED, PLAX 21.9 mm 19-38 BASIC MEASUREMENTS ADULT Normal Aortic valve Leaflet separation *10 mm 15-26 Aorta Root diameter, ED 33 mm 20-37 Left atrium Anterior-posterior dimension, ES *45 mm 19-40 LA/aortic root ratio 1.36 DOPPLER MEASUREMENTS ADULT Normal Aortic valve Peak velocity, S 388 cm/s Mean velocity, S 270 cm/s VTI, S 71.3 cm Mean gradient, S 34 mm Hg Peak gradient, S 60 mm Hg Valve area, VTI 0.3 cm^2 Valve area, Vmax 0.45 cm^2 Tricuspid valve Regurgitant peak velocity 196 cm/s Peak RV-RA gradient, S 15 mm Hg Maximal regurgitant velocity 196 cm/s LEGEND: Mean values are shown as u=mean value. Asterisk (*) spivey values outside specified normal range. Prepared and signed by Landen Beverly [id number]
--- NOTE | 2016-05-11 13:21 | RADRPT ---
EXAM DATE/TIME: 05/11/2016 12:32 [facility] COMPARISON: No previous studies available for comparison. INDICATIONS : Left ankle pain; fall. MEDICAL HISTORY : None. SURGICAL HISTORY : None. ENCOUNTER: Initial ACUITY: 4 - 6 days PAIN SCORE: 7/10 LOCATION: Left ankle. FINDINGS: Three view exam was performed of the left ankle. The bony structures are in normal alignment. No ev idence of fracture or dislocation. There is soft tissue swelling especially medially. The bones are o steopenic. CONCLUSION: Soft tissue swelling. Gt Sosa MD on May 11, 2016 at 13:18 Board Certified Radiologist. This report was verified electronically.
--- NOTE | 2016-05-11 13:38 | RADRPT ---
EXAM DATE/TIME: 05/11/2016 12:41 [facility] COMPARISON: No previous studies available for comparison. INDICATIONS: Right ankle pain; fall 4 days ago. MEDICAL HISTORY: None. SURGICAL HISTORY: None. ENCOUNTER: Initial ACUITY: 4 - 6 days PAIN SCORE: 7/10 LOCATION: Right ankle. FINDINGS: There is generalized soft tissue swelling evident. Phleboliths are seen in the veins. There is osteo penia present without fracture. CONCLUSION: Degenerative changes, osteopenia, without fracture. Fuentes Pal MD FACR on May 11, 2016 at 13:10 Board Certified Radiologist. This report was verified electronically.
--- NOTE | 2016-05-11 13:43 | EKG ---
Date Performed: 05/11/2016 Time Performed: 10:07:35 PTAGE: 70 years EKG: ATRIAL FIBRILLATION WITH RAPID VENTRICULAR RESPONSE RIGHT BUNDLE BRANCH BLOCK MODERATE T-WA VE ABNORMALITY, CONSIDER LATERAL ISCHEMIA ABNORMAL ECG PREVIOUS TRACING : 05/10/2016 22.45 DOCTOR: Cresencio Larson Interpretating Date/Time 05/11/2016 13:42:14
--- NOTE | 2016-05-11 13:52 | EKG ---
Date Performed: 05/10/2016 Time Performed: 22:45:28 PTAGE: 70 years EKG: ATRIAL FIBRILLATION WITH RAPID VENTRICULAR RESPONSE RIGHT BUNDLE BRANCH BLOCK ST DEVIATION AND MODERATE T-WAVE ABNORMALITY, CONSIDER ANTEROLATERAL ISCHEMIA ABNORMAL ECG PREVIOUS TRACING : 05/10/2016 16.35 DOCTOR: Cresencio Larson Interpretating Date/Time 05/11/2016 13:49:25
--- NOTE | 2016-05-11 13:52 | PD.CONS ---
History of Present Illness Service Ophthalmology Consult Requested By Reason for Consult left orbital floor fracture Primary Care Physician No Primary Care Physician Diagnoses: History of Present Illness 70 yo female with past medical history of atrial fibrillation, prior stroke. She was walking down the sidewalk 05/07/16 when she fell and injured her left knee. Her friend then came to the home and found her on the floor, disheveled, in the urine and feces. CT maxillofacial demonstrated the left lateral orbital wall and orbital floor fractures. There is no evidence of entrapment. She states she has no change in vision, no pain. Pt seems to be falling asleep during exam, and is not following commands. Past Family Social History Allergies: Coded Allergies: Benadryl (Verified Allergy, Mild, hives, 07/26/11) Sulfa (Verified Allergy, Mild, HIVES, 07/26/11) Uncoded Allergies: antihihistamines (Allergy, Mild, hives, 05/02/11) Physical Exam Vital Signs Vital Signs Date Time Temp Pulse Resp B/P Pulse Ox O2 Delivery O2 Flow Rate FiO2 05/11/16 12:47 98.7 94 16 105/56 99 05/11/16 12:00 101 05/11/16 10:29 102 05/11/16 08:00 98.3 102 16 95/59 99 05/11/16 06:00 97 05/11/16 04:00 98.7 115 13 103/56 96 05/11/16 04:00 115 05/11/16 02:00 126 05/11/16 00:36 99.0 119 16 104/65 100 2 05/10/16 23:15 120 16 110/59 98 Nasal Cannula 2 05/10/16 22:40 99.2 143 18 105/51 98 Nasal Cannula 2 05/10/16 21:00 128 16 198/60 98 Nasal Cannula 2 05/10/16 20:08 97.6 128 18 115/72 96 Room Air 05/10/16 19:22 95.4 114 14 122/62 92 Room Air 05/10/16 18:24 138 18 124/68 05/10/16 18:08 150 18 110/57 Room Air 05/10/16 17:48 133 20 202/138 Room Air 05/10/16 16:18 96.8 146 18 155/70 05/10/16 14:29 93.0 150 21 Physical Exam Va cc at near OD 20/100, OS 20/100 - pt was falling asleep EOM full OU, no diplopia CVF full OU Pupils 2-1 no APD OU IOP normal to palpation OU Anterior exam OD - eyelid ecchymoses, C/S W&Q, K clear, AC deep, pupil round, lens clear OS - eyelid ecchymoses, C/S W&Q, K clear, AC deep, pupil round, lens clear Laboratory Laboratory Tests Test 05/10/16 05/10/16 05/10/16 05/10/16 14:40 16:25 19:50 22:26 White Blood Count 9.7 Red Blood Count 4.86 Hemoglobin 15.2 Hematocrit 46.0 Mean Corpuscular Volume 94.7 Mean Corpuscular Hemoglobin 31.2 Mean Corpuscular Hemoglobin 32.9 Concent Red Cell Distribution Width 15.5 Platelet Count 195 Mean Platelet Volume 9.7 Neutrophils (%) (Auto) 85.5 Lymphocytes (%) (Auto) 6.8 Monocytes (%) (Auto) 7.6 Eosinophils (%) (Auto) 0.0 Basophils (%) (Auto) 0.1 Neutrophils # (Auto) 8.3 Lymphocytes # (Auto) 0.7 Monocytes # (Auto) 0.7 Eosinophils # (Auto) 0.0 Basophils # (Auto) 0.0 CBC Comment DIFF FINAL Differential Comment Prothrombin Time 11.7 Prothromb Time International 1.1 Ratio Activated Partial 24.8 Thromboplast Time Sodium Level 149 Potassium Level 4.5 Chloride Level 110 Carbon Dioxide Level 19.7 Anion Gap 19 Blood Urea Nitrogen 90 Creatinine 3.06 Estimat Glomerular Filtration 15 Rate Random Glucose 92 Lactic Acid Level 3.1 1.7 Calcium Level 9.8 Total Bilirubin 0.9 Aspartate Amino Transf 75 (AST/SGOT) Alanine Aminotransferase 45 (ALT/SGPT) Alkaline Phosphatase 86 Total Creatine Kinase 990 761 Creatine Kinase MB 21.4 17.4 Creatine Kinase MB % 2.2 2.3 Troponin I 0.40 0.35 B-Type Natriuretic Peptide 229 Total Protein 7.5 Albumin 4.2 Digoxin Level 0.2 Urine Color YELLOW Urine Turbidity HAZY Urine pH 7.0 Urine Specific [place] 1.016 Urine Protein 100 Urine Glucose (UA) NEG Urine Ketones TRACE Urine Occult Blood SMALL Urine Nitrite NEG Urine Bilirubin NEG Urine Urobilinogen 2.0 Urine Leukocyte Esterase LARGE Urine RBC 8 Urine WBC 52 Urine Squamous Epithelial 1 Cells Urine Amorphous Sediment RARE Urine Bacteria MANY Microscopic Urinalysis Comment CATH-CULTURE IND Test 05/11/16 03:27 White Blood Count 3.0 Red Blood Count 4.27 Hemoglobin 13.4 Hematocrit 40.2 Mean Corpuscular Volume 94.1 Mean Corpuscular Hemoglobin 31.4 Mean Corpuscular Hemoglobin 33.3 Concent Red Cell Distribution Width 15.0 Platelet Count 138 Mean Platelet Volume 9.3 Neutrophils (%) (Auto) 84.4 Lymphocytes (%) (Auto) 7.9 Monocytes (%) (Auto) 7.1 Eosinophils (%) (Auto) 0.5 Basophils (%) (Auto) 0.1 Neutrophils # (Auto) 2.5 Lymphocytes # (Auto) 0.2 Monocytes # (Auto) 0.2 Eosinophils # (Auto) 0.0 Basophils # (Auto) 0.0 CBC Comment DIFF FINAL Differential Comment Sodium Level 141 Potassium Level 3.8 Chloride Level 107 Carbon Dioxide Level 17.7 Anion Gap 16 Blood Urea Nitrogen 81 Creatinine 2.15 Estimat Glomerular Filtration 23 Rate Random Glucose 86 Calcium Level 8.2 Phosphorus Level 3.7 Magnesium Level 1.7 Total Bilirubin 0.7 Aspartate Amino Transf 56 (AST/SGOT) Alanine Aminotransferase 32 (ALT/SGPT) Alkaline Phosphatase 64 Total Creatine Kinase 797 Creatine Kinase MB 17.2 Creatine Kinase MB % 2.2 Troponin I 0.38 Total Protein 5.8 Albumin 3.1 Thyroid Stimulating Hormone 2.690 3rd Gen Date/Time Procedure Status Source Growth 05/10/16 22:26 Aerobic Blood Culture - Preliminary Resulted Blood Peripheral NO GROWTH IN 1 DAY 05/10/16 22:26 Anaerobic Blood Culture - Preliminary Resulted Blood Peripheral NO GROWTH IN 1 DAY 05/10/16 16:25 Urine Culture Received Urine Catheterized Urine Pending Result Diagram: 05/11/16 0327 05/11/16 0327 Assessment and Plan Problem List: (1) Fracture of orbital floor, blow-out, left, closed Status: Acute Plan: No acute eye injury. Recommend followup as outpatient for comprehensive exam. Joanne Rhodes MD May 11, 2016 13:52
--- NOTE | 2016-05-11 14:02 | EKG ---
Date Performed: 05/10/2016 Time Performed: 16:35:17 PTAGE: 70 years EKG: ATRIAL FIBRILLATION WITH RAPID VENTRICULAR RESPONSE MARKED LEFT AXIS DEVIATION POSSIBLE RIG HT VENTRICULAR CONDUCTION DELAY PROBABLE LATERAL MYOCARDIAL INFARCTION ST DEVIATION AND MODERATE T-WA VE ABNORMALITY, CONSIDER ANTERIOR ISCHEMIA ABNORMAL ECG PREVIOUS TRACING : 07/26/2011 15.49 DOCTOR: Cresencio Larson Interpretating Date/Time 05/11/2016 13:56:12
[2016-05-11] MEDS ORDERED: cefTRIAXone INJ 1,000 MG in SODIUM CHLORIDE 0.9% INJ 100 ML IV SCH (18:00)
--- NOTE | 2016-05-11 19:45 | MB ---
cc: ZAFAR CULLEN MD DATE OF CONSULTATION 05/11/16 INDICATION Aortic stenosis. HISTORY OF PRESENT ILLNESS This is a 70-year-old female who is a poor historian. Most of the history is obtained from chart records. The patient presented back on May 10. She has a history of atrial fibrillation and prior stroke with some left-sided weakness, not on anticoagulation. Apparently, she was walking down the sidewalk on May 07 when she fell, injured her knee. She walks with a cane at baseline. She continued to have difficulty walking saying that her leg was giving out. A friend came over to her house, found her disheveled, confused in urine and feces. She was brought in, found to be in atrial fibrillation with rapid rate, given IV digoxin, started on Cardizem drip. She was also hypertensive at presentation. She had a CT scan performed which showed a left lateral orbital wall fracture without entrapment. Workup on her leg was essentially negative. She lives alone. She has limited mobility. Echocardiogram was performed which showed reduced ejection fraction and severe aortic stenosis with moderate to severe aortic regurgitation. 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 PAST MEDICAL HISTORY Atrial fib PAST SURGICAL HISTORY 1. Hysterectomy 2. Left femur ORIF 3. Left hip replacement, 4. Appendectomy MEDICATIONS Reported, she is only on digoxin at home. FAMILY HISTORY Denies as any family history of early coronary disease or sudden cardiac . SOCIAL HISTORY She used to smoke for many years, still smokes about two to three cigarettes a day. Denies any current alcohol use or drug use. REVIEW OF SYSTEMS 12-point review of systems was performed, negative unless otherwise noted in history of present illness. PHYSICAL EXAMINATION VITAL SIGNS: Temperature 98, pulse 92, blood pressure 105/56 mmHg. GENERAL: Alert and oriented times two. HEENT: Pupils reactive to light and accommodation. There is significant bruising and left orbital fracture. NECK: No jugular venous distension. No thyromegaly or lymphadenopathy or carotid bruits. LUNGS: Clear to auscultation bilaterally. CARDIOVASCULAR: Regular rate and rhythm. 3/6 systolic murmur left sternal border. ABDOMEN: Nontender, nondistended. Good bowel sounds. No hepatosplenomegaly. EXTREMITIES: No clubbing, cyanosis or edema. There is ecchymosis in right lower extremity. NEUROLOGIC: Cranial nerves intact. Motor sensory grossly intact. LABORATORY DATA WBC 3, hemoglobin is 13.4, platelet count 138, INR is 1.1. Sodium 141, potassium 3.8, BUN is 81, creatinine is 2.15, troponin 0.38. Creatinine yesterday was 3.06. ASSESSMENT 1. Cardiomyopathy 2. Severe aortic stenosis. 3. Moderate to severe aortic regurgitation. 4. Left orbital fracture 5. [id number] TN 6. Acute renal failure PLAN The patient has poor prognosis. Her cardiomyopathy and valvular heart disease is newly recognized. She is rather cachectic and has little support system available. I do not think she would be any reasonable candidate for aortic valve surgery even TAVR. She is rather small and I do not think that her common femoral or iliac system would accommodate large [place] system. She also has elevated creatinine and multiorgan failure. Certainly anything invasive would be risky. In addition, a heart catheterization would almost certainly put her on dialysis. From an atrial fibrillation standpoint, she has chronic atrial fibrillation, not an anticoagulation candidate. Heart rate is better controlled. Continue digoxin with as needed Cardizem oral. I would probably recommend palliative care consult as her life expectancy is less than 6 months. will sign off call with further questions MD RACHEL Ramesh/ /5:36 PM /7:22 PM POLI
[2016-05-11 22:34] LABS: C. DIFF EPI 027 PRESUMPTIVE NEGATIVE (NEGATIVE); C. DIFF TOXIN PCR NEGATIVE (NEGATIVE)
[2016-05-12] VITALS (7 sets, daily range): BP systolic 76–103; BP diastolic 49–55; PULSE 93–131; RESP 16–23; TEMP 98.2–98.7; O2SAT 96–98
[2016-05-12] MEDS: SODIUM CHLOR 0.9% 1000 ML INJ 1,000 ML IV SCH (00:10)
[2016-05-12] MEDS: CHLORHEXIDINE GLUCONATE 2 % 1 PACK (2 CLOTHS) TOP SCH (04:00)
[2016-05-12] MEDS: DILTIAZEM INJ 125 MG in SODIUM CHLORIDE 0.9% INJ 100 ML IV SCH (05:17)
[2016-05-12 05:47] LABS: BICARBONATE 18.5 MEQ/L (21.0-32.0); POTASSIUM 4.2 MEQ/L (3.5-5.1)
[2016-05-12 06:08] LABS: AUTOMATED NEUTROPHIL # 7.6 TH/MM3 (1.8-7.7); BASOPHIL % 0.1 % (0.0-2.0); EOSINOPHIL # 0.1 TH/MM3 (0-0.4); EOSINOPHIL % 0.9 % (0.0-4.0); HEMATOCRIT 38.7 % (35.0-46.0); HEMO FLAGS DIFF FINAL; LYMPHOCYTE # 0.4 TH/MM3 (1.0-4.8); MEAN CELL VOLUME 95.2 FL (80.0-100.0); MEAN CORPUSCULAR HEMOGLOBIN 30.6 PG (27.0-34.0); MEAN CORPUSCULAR HGB CONC 32.2 % (32.0-36.0); MONO % 7.7 % (0.0-8.0); NEUT % 86.3 % (16.0-70.0); PLATELET COUNT 105 TH/MM3 (150-450); RED BLOOD COUNT 4.06 MIL/MM3 (4.00-5.30); RED CELL DISTRIBUTION WIDTH 15.9 % (11.6-17.2); WHITE BLOOD COUNT 8.8 TH/MM3 (4.0-11.0)
[2016-05-12 06:37] LABS: CKMB 7.6 NG/ML (0.5-3.6)
[2016-05-12] MEDS ORDERED: ASPIRIN EC 81 MG TABEC PO SCH (09:00)
[2016-05-12] MEDS: PANTOPRAZOLE SOD 40 MG DELAYED RELEASE TAB PO SCH (09:00)
[2016-05-12] MEDS: HEPARIN SODIUM - SQ 10,000 UNITS/ML VIAL SQ SCH (09:00)
[2016-05-12] MEDS: DOCUSATE SODIUM 100 MG CAP PO SCH (09:00)
[2016-05-12] MEDS ORDERED: LOPERAMIDE HCL 2 MG CAP PO PRN (09:30)
--- NOTE | 2016-05-12 09:57 | PD.CONS ---
Consult Service Palliative Care Consult Requested By Dr Hassan Primary Care Physician No Primary Care Physician Reason for Consultation a. To assist with evaluation and management of symptoms including: Pain b. To assist medical decision maker(s) with: better understanding of current medical conditions; weighing benefits/burdens of medical treatment options; making medical treatment decisions. HPI History of Present Illness This is a 70 yo frail woman who presented to the ED after a fall 3 days ago when she was walking in a bank parking lot and accidentally tripped, landing on her left knee and hitting her face on the ground. EMS was called at the time, but she refused to go to the hospital and opted to return home to her apartment. When she got home her left knee gave out, again causing her to fall at home and was on the ground 3 days before being found by a friend. Initial diagnostics found that she was in A. fib with RVR with a heart rate of 157. She was hypothermic with dehydration, acute kidney injury as well as rhabdomyolysis. Lower extremity X-rays were negative for any acute abnormalities. CT of the cervical spine was also negative. Head CT showed old infarcts and atrophy, but otherwise negative for acute abnormality. She was identified to have a left orbital floor fracture. Echocardiogram showed a dilated left ventricle with an ejection fraction estimated in the range of 25-30% with diffuse hypokinesis as well as Aortic stenosis w moderate to sever aortic regurgitation. There is mild regurgitation of the mitral and tricuspid valve. This is compared to an AUGIE echo study completed on 05/09/2011 where her ejection fraction fraction was estimated at 55- 60% with only mild regurgitation and tricuspid. She has history of atrial fibrillation since 2011 and has a history of a prior CVA and usually uses a cane to walk. Her L leg is 2" short than her R with inward rotation post L ORIF 04/2011 and fall w femur fracture. At the time of my visit, she is alert and oriented times 4 with good insight. She is a good historian. In spite of her fall, she denies any discomfort. States that she is breathing without difficulty. She is able to relay her life story and we are able to engage in a conversation regarding end-of-life, healthcare surrogate, and DNR status. Review of Systems Constitutional: COMPLAINS OF: Fatigue, Generalized weakness Eyes: COMPLAINS OF: Blurred vision, Eye pain Ears, nose, mouth, throat: DENIES: Vertigo, Nasal discharge, Throat pain Respiratory: COMPLAINS OF: Shortness of breath, DENIES: Cough Cardiovascular: COMPLAINS OF: Palpitations, Dyspnea on Exertion, DENIES: Chest pain Gastrointestinal: DENIES: Abdominal pain, Constipation, Diarrhea Genitourinary: DENIES: Urinary frequency, Urinary incontinence Musculoskeletal: COMPLAINS OF: Joint pain, Muscle aches, Stiffness Hematologic/Lymphatics: DENIES: Bruising Neurologic: COMPLAINS OF: Abnormal gait, Poor Balance Psychiatric: DENIES: Anxiety, Confusion Past Family Social History Coded Allergies: Benadryl (Verified Allergy, Mild, hives, 07/26/11) Sulfa (Verified Allergy, Mild, HIVES, 07/26/11) Uncoded Allergies: antihihistamines (Allergy, Mild, hives, 05/02/11) Past Medical History Hypertension CVA A fibrillation Past Surgical History Hysterectomy Left femur ORIF 04/29/11 Left hip replacement Appendectomy She has not had a recent colonoscopy Reported Medications digoxin Current Medications Medications (Trade) Dose Ordered Sig/Leonard Route Start Time Stop Time Status Last Admin (Cardizem Inj/NS Inj) 125 ml @ 0 mls/hr TITRATE IV 05/10/16 16:45 05/12/16 05:17 ([place] 5-325 Mg) 1 tab Q4H PRN PO 05/10/16 20:45 (NS Flush) 2 ml UNSCH PRN IV FLUSH 05/10/16 21:00 (NS Flush) 2 ml BID IV FLUSH 05/10/16 21:00 05/10/16 23:00 (Tylenol) 650 mg Q6H PRN PO 05/10/16 21:00 (Morphine Inj) 2 mg Q2H PRN IV 05/10/16 21:00 05/11/16 00:54 (Protonix) 40 mg DAILY PO 05/11/16 09:00 05/11/16 09:00 (Zofran Inj) 4 mg Q6H PRN IV 05/10/16 21:00 05/11/16 00:54 (Colace) 100 mg BID PO 05/10/16 21:00 05/11/16 09:00 (Heparin Inj) 5,000 units Q12H SQ 05/10/16 21:00 05/11/16 20:44 Miscellaneous Information 1 Q361D XX 05/10/16 21:00 (Chlorhexidine 2% Cloth) 3 pack Taper DAILY@04 TOP 05/11/16 04:00 05/07/17 03:59 05/12/16 04:00 (Chlorhexidine 2% Cloth) 3 pack UNSCH PRN TOP 05/10/16 21:00 Digoxin 0.125 mg 0.125 mg Q48H PO 05/12/16 22:00 Ceftriaxone Sodium 1000 mg/ Sodium Chloride 100 ml @ 200 mls/hr Q24H IV 05/11/16 18:00 05/11/16 18:00 (NS 1000 ml Inj) 1,000 ml @ 125 mls/hr Q8H IV 05/11/16 12:15 05/12/16 00:10 (Ecotrin Ec) 81 mg DAILY PO 05/12/16 09:00 (Imodium) 2 mg Q6H PRN PO 05/12/16 09:30 Family History Family History Father had history of atrial fibrillation and at age 78 from a stroke Mother at age 61 due to complications of alcoholism. Substance Use Tobacco:She has smoked x 42 yrs Alcohol:She used to drink daily "a long time ago" but denies any recent alcohol use Prescription med abuse: Denies. Illicits: Denies Psychosocial History Grew up in 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 According to [place] statutes, health care proxy decision making falls to her 2 sons - Zana unless she opts to appoint one Physical Exam Vital Signs Date Time Temp Pulse Resp B/P Pulse Ox O2 Delivery O2 Flow Rate FiO2 05/12/16 06:00 107 05/12/16 04:00 98.3 107 23 103/55 98 05/12/16 04:00 96 05/12/16 02:00 93 05/12/16 00:00 96 05/12/16 00:00 98.2 96 16 93/50 96 05/11/16 22:00 93 05/11/16 20:00 96 05/11/16 20:00 97.7 95 20 114/48 97 05/11/16 18:00 97 05/11/16 16:00 123 05/11/16 16:00 98.4 122 18 100/52 99 05/11/16 14:31 92 05/11/16 12:47 98.7 94 16 105/56 99 05/11/16 12:00 101 05/11/16 10:29 102 05/11/16 05/12/16 19:00 07:00 Intake Total 1255 ml 2779 ml Output Total 650 ml 2950 ml Balance 605 ml -171 ml Intake Oral 480 ml IV Total 1255 ml 2299 ml Output Urine Total 650 ml 1350 ml Stool Total 1600 ml # Bowel Movements 3 Exam CONSTITUTIONAL/GENERAL: This is an frail 62-year-old female who does not appear to be in any distress currently. Denies discomfort TUBES/LINES/DRAINS: Arechiga, rectal bag, multiple IV lines SKIN: Several areas of ecchymosis on legs and arms, as well as significant bruising on the left face with lesion over the left eyebrow. Skin temperature appropriate. Not diaphoretic. HEAD: Atraumatic. Normocephalic. EYES: Pupils equal and round and reactive. Extraocular motions intact. Noted to the left sclera. No injection or drainage. Fundi not examined. ENT: Hearing grossly normal. Nose without bleeding or purulent drainage. Throat without visible erythema, exudates, masses, or lesions. NECK: Trachea midline. Supple, nontender. No palpable thyroid enlargement or nodularity. CARDIOVASCULAR: Irregular rate and rhythm with rapid ventricular response, aorta with murmur. No JVD. Peripheral pulses symmetric. RESPIRATORY/CHEST: Symmetric, unlabored respirations. Clear to auscultation. Breath sounds equal . Diminished bases bilaterally. GASTROINTESTINAL: Abdomen soft, non-tender, nondistended. No hepato-splenomegaly , or palpable masses. No guarding. Bowel sounds present. GENITOURINARY: Without palpable bladder distension. Arechiga catheter in place. MUSCULOSKELETAL: Left leg with shortness noted and internal rotation , Extremities without clubbing, cyanosis, or edema. No tenderness No calf tenderness. LYMPHATICS: No palpable cervical or supraclavicular adenopathy. NEUROLOGICAL: Awake and alert. Motor and sensory grossly within normal limits. Follows commands. Cognitively sharp. Moves all extremities. PSYCHIATRIC: No obvious anxiety/depression. no apparent hallucinations or other psychotic thought process. Diagnostic Tests Laboratory Laboratory Tests Test 05/10/16 05/10/16 05/10/16 05/10/16 00:30 14:40 16:25 19:50 Nasal Screen MRSA (PCR) NEGATIVE (NEGATIVE) Prothrombin Time 11.7 SEC (9.8-11.6) Prothromb Time International 1.1 RATIO Ratio Activated Partial 24.8 SEC Thromboplast Time (24.3-30.1) Sodium Level 149 MEQ/L (136-145) Potassium Level 4.5 MEQ/L (3.5-5.1) Chloride Level 110 MEQ/L (98-107) Carbon Dioxide Level 19.7 MEQ/L (21.0-32.0) Anion Gap 19 MEQ/L (5-15) Blood Urea Nitrogen 90 MG/DL (7-18) Creatinine 3.06 MG/DL (0.50-1.00) Estimat Glomerular Filtration 15 ML/MIN (>89) Rate Random Glucose 92 MG/DL (74-106) Lactic Acid Level 3.1 mmol/L 1.7 mmol/L (0.4-2.0) (0.4-2.0) Calcium Level 9.8 MG/DL (8.5-10.1) Total Bilirubin 0.9 MG/DL (0.2-1.0) Aspartate Amino Transf 75 U/L (15-37) (AST/SGOT) Alanine Aminotransferase 45 U/L (10-53) (ALT/SGPT) Alkaline Phosphatase 86 U/L (45-117) Total Creatine Kinase 990 U/L (26-192) Creatine Kinase MB 21.4 NG/ML (0.5-3.6) Creatine Kinase MB % 2.2 % (0.0-4.0) Troponin I 0.40 NG/ML (0.02-0.05) B-Type Natriuretic Peptide 229 PG/ML (0-100) Total Protein 7.5 GM/DL (6.4-8.2) Albumin 4.2 GM/DL (3.4-5.0) Digoxin Level 0.2 NG/ML (0.8-2.0) White Blood Count 9.7 TH/MM3 (4.0-11.0) Red Blood Count 4.86 MIL/MM3 (4.00-5.30) Hemoglobin 15.2 GM/DL (11.6-15.3) Hematocrit 46.0 % (35.0-46.0) Mean Corpuscular Volume 94.7 FL (80.0-100.0) Mean Corpuscular Hemoglobin 31.2 PG (27.0-34.0) Mean Corpuscular Hemoglobin 32.9 % Concent (32.0-36.0) Red Cell Distribution Width 15.5 % (11.6-17.2) Platelet Count 195 TH/MM3 (150-450) Mean Platelet Volume 9.7 FL (7.0-11.0) Neutrophils (%) (Auto) 85.5 % (16.0-70.0) Lymphocytes (%) (Auto) 6.8 % (9.0-44.0) Monocytes (%) (Auto) 7.6 % (0.0-8.0) Eosinophils (%) (Auto) 0.0 % (0.0-4.0) Basophils (%) (Auto) 0.1 % (0.0-2.0) Neutrophils # (Auto) 8.3 TH/MM3 (1.8-7.7) Lymphocytes # (Auto) 0.7 TH/MM3 (1.0-4.8) Monocytes # (Auto) 0.7 TH/MM3 (0-0.9) Eosinophils # (Auto) 0.0 TH/MM3 (0-0.4) Basophils # (Auto) 0.0 TH/MM3 (0-0.2) CBC Comment DIFF FINAL Differential Comment Urine Color YELLOW (YELLW/STRAW) Urine Turbidity HAZY (CLEAR) Urine pH 7.0 (5.0-8.5) Urine Specific [place] 1.016 (1.002-1.035) Urine Protein 100 mg/dL (NEG-TRACE) Urine Glucose (UA) NEG mg/dL (NEG) Urine Ketones TRACE mg/dL (NEG) Urine Occult Blood SMALL (NEG) Urine Nitrite NEG (NEG) Urine Bilirubin NEG (NEG) Urine Urobilinogen 2.0 MG/DL (LESS THAN 2.0) Urine Leukocyte Esterase LARGE (NEG) Urine RBC 8 /hpf (0-3) Urine WBC 52 /hpf (0-5) Urine Squamous Epithelial 1 /hpf (0-5) Cells Urine Amorphous Sediment RARE Urine Bacteria MANY /hpf (NONE) Microscopic Urinalysis Comment CATH-CULTURE IND Test 05/10/16 05/11/16 05/11/16 05/12/16 22:26 03:27 20:50 03:51 Total Creatine Kinase 761 U/L 797 U/L 509 U/L (26-192) (26-192) (26-192) Creatine Kinase MB 17.4 NG/ML 17.2 NG/ML 7.6 NG/ML (0.5-3.6) (0.5-3.6) (0.5-3.6) Creatine Kinase MB % 2.3 % (0.0-4.0) 2.2 % (0.0-4.0) 1.5 % (0.0-4.0) Troponin I 0.35 NG/ML 0.38 NG/ML (0.02-0.05) (0.02-0.05) White Blood Count 3.0 TH/MM3 8.8 TH/MM3 (4.0-11.0) (4.0-11.0) Red Blood Count 4.27 MIL/MM3 4.06 MIL/MM3 (4.00-5.30) (4.00-5.30) Hemoglobin 13.4 GM/DL 12.4 GM/DL (11.6-15.3) (11.6-15.3) Hematocrit 40.2 % 38.7 % (35.0-46.0) (35.0-46.0) Mean Corpuscular Volume 94.1 FL 95.2 FL (80.0-100.0) (80.0-100.0) Mean Corpuscular Hemoglobin 31.4 PG 30.6 PG (27.0-34.0) (27.0-34.0) Mean Corpuscular Hemoglobin 33.3 % 32.2 % Concent (32.0-36.0) (32.0-36.0) Red Cell Distribution Width 15.0 % 15.9 % (11.6-17.2) (11.6-17.2) Platelet Count 138 TH/MM3 105 TH/MM3 (150-450) (150-450) Mean Platelet Volume 9.3 FL 9.4 FL (7.0-11.0) (7.0-11.0) Neutrophils (%) (Auto) 84.4 % 86.3 % (16.0-70.0) (16.0-70.0) Lymphocytes (%) (Auto) 7.9 % 5.0 % (9.0-44.0) (9.0-44.0) Monocytes (%) (Auto) 7.1 % (0.0-8.0) 7.7 % (0.0-8.0) Eosinophils (%) (Auto) 0.5 % (0.0-4.0) 0.9 % (0.0-4.0) Basophils (%) (Auto) 0.1 % (0.0-2.0) 0.1 % (0.0-2.0) Neutrophils # (Auto) 2.5 TH/MM3 7.6 TH/MM3 (1.8-7.7) (1.8-7.7) Lymphocytes # (Auto) 0.2 TH/MM3 0.4 TH/MM3 (1.0-4.8) (1.0-4.8) Monocytes # (Auto) 0.2 TH/MM3 0.7 TH/MM3 (0-0.9) (0-0.9) Eosinophils # (Auto) 0.0 TH/MM3 0.1 TH/MM3 (0-0.4) (0-0.4) Basophils # (Auto) 0.0 TH/MM3 0.0 TH/MM3 (0-0.2) (0-0.2) CBC Comment DIFF FINAL DIFF FINAL Differential Comment Sodium Level 141 MEQ/L 147 MEQ/L (136-145) (136-145) Potassium Level 3.8 MEQ/L 4.2 MEQ/L (3.5-5.1) (3.5-5.1) Chloride Level 107 MEQ/L 119 MEQ/L (98-107) (98-107) Carbon Dioxide Level 17.7 MEQ/L 18.5 MEQ/L (21.0-32.0) (21.0-32.0) Anion Gap 16 MEQ/L (5-15) 10 MEQ/L (5-15) Blood Urea Nitrogen 81 MG/DL (7-18) 47 MG/DL (7-18) Creatinine 2.15 MG/DL 1.32 MG/DL (0.50-1.00) (0.50-1.00) Estimat Glomerular Filtration 23 ML/MIN (>89) 40 ML/MIN (>89) Rate Random Glucose 86 MG/DL 63 MG/DL (74-106) (74-106) Calcium Level 8.2 MG/DL 8.2 MG/DL (8.5-10.1) (8.5-10.1) Phosphorus Level 3.7 MG/DL (2.5-4.9) Magnesium Level 1.7 MG/DL (1.5-2.5) Total Bilirubin 0.7 MG/DL (0.2-1.0) Aspartate Amino Transf 56 U/L (15-37) (AST/SGOT) Alanine Aminotransferase 32 U/L (10-53) (ALT/SGPT) Alkaline Phosphatase 64 U/L (45-117) Total Protein 5.8 GM/DL (6.4-8.2) Albumin 3.1 GM/DL (3.4-5.0) Thyroid Stimulating Hormone 2.690 uIU/ML 3rd Gen (0.358-3.740) Stool C. difficile Toxin (PCR) NEGATIVE (NEGATIVE) Stl C. difficile Toxin PRESUMPTIVE Epiderm 027 NEGATIVE (NEGATIVE) Hematology Comments Result Diagram: 05/12/16 0351 05/12/16 0351 Microbiology Microbiology Date/Time Procedure Status Source Growth 05/10/16 14:40 Aerobic Blood Culture - Preliminary Resulted Blood Peripheral NO GROWTH IN 1 DAY 05/10/16 14:40 Anaerobic Blood Culture - Preliminary Resulted Blood Peripheral NO GROWTH IN 1 DAY 05/10/16 16:25 Urine Culture - Preliminary Resulted Urine Catheterized Urine Gram Negative Christopher 05/10/16 22:26 Aerobic Blood Culture - Preliminary Resulted Blood Peripheral NO GROWTH IN 1 DAY 05/10/16 22:26 Anaerobic Blood Culture - Preliminary Resulted Blood Peripheral NO GROWTH IN 1 DAY Imaging Last 72 hours Impressions Chest X-Ray 05/11/16 0000 Signed Impressions: Service Date/Time: April 03:13 - CONCLUSION: No acute cardiopulmonary disease identified. Ranjeet Lopez MD Ankle X-Ray 05/11/16 0000 Signed Impressions: Service Date/Time: April 12:41 - CONCLUSION: Degenerative changes, osteopenia, without fracture. Fuentes Pal MD FACR Ankle X-Ray 05/11/16 0000 Signed Impressions: Service Date/Time: April 12:32 - CONCLUSION: Soft tissue swelling. Gt Sosa MD Tibia/Fibula X-Ray 05/10/161436 Signed Impressions: Service Date/Time: Tuesday, May 10, 2016 15:21 - CONCLUSION: No acute disease. Gt Sosa MD Tibia/Fibula X-Ray 05/10/161436 Signed Impressions: Service Date/Time: Tuesday, May 10, 2016 15:20 - CONCLUSION: No acute disease. Gt Sosa MD Maxillofacial CT 05/10/161436 Signed Impressions: Service Date/Time: Tuesday, May 10, 2016 15:59 - CONCLUSION: Left lateral orbital wall and orbital floor fractures with associated subcutaneous hematoma. No other significant abnormality. Jordan Carlin MD Knee X-Ray 05/10/161436 Signed Impressions: Service Date/Time: Tuesday, May 10, 2016 15:23 - CONCLUSION: No acute disease. Gt Sosa MD Head CT 05/10/161436 Signed Impressions: Service Date/Time: Tuesday, May 10, 2016 15:57 - CONCLUSION: Atrophy, old infarcts. Facial bones CT is pending. Fuentes Pal MD FACR Femur X-Ray 05/10/161436 Signed Impressions: Service Date/Time: Tuesday, May 10, 2016 15:17 - CONCLUSION: No acute abnormalities seen. Gt Sosa MD Femur X-Ray 05/10/161436 Signed Impressions: Service Date/Time: Tuesday, May 10, 2016 15:16 - CONCLUSION: No acute fracture is seen. There is sclerosis of the medial femoral head likely related to avascular necrosis without collapse. Gt Sosa MD Chest X-Ray 05/10/161436 Signed Impressions: Service Date/Time: Tuesday, May 10, 2016 15:10 - CONCLUSION: No acute disease. Gt Sosa MD Cervical Spine CT 05/10/161436 Signed Impressions: Service Date/Time: Tuesday, May 10, 2016 15:58 - CONCLUSION: Degenerative changes as described above. Fracture is not appreicated. Fuentes Pal MD FACR Patient/Family Conference Family Conference Location: Bedside Issues Discussed: * Palliative care role, purpose, approach * Additional medical, psychosocial, and spiritual history * Patients general health, functional status, and cognitive changes in the months leading up to the current hospitalization * Patient/family understanding of the current medical problems * Patient/family understanding of prognosis * Patients goals of care as best understood from advance directives and/or conversations and/or values * Current medical treatment options and benefits/burdens of those options * Likely scenarios comparing ongoing aggressive care with a transition to comfort measures only * Questions answered to the best of my ability * Palliative care contact information provided Assessment and Plan Disease Oriented Problem List: (1) Atrial fibrillation with RVR (2) CHILO (acute kidney injury) (3) Rhabdomyolysis Symptom Scale: (1) Pain (2) Dyspnea Pertinent Non-Medical Issues Psychosocial: Spiritual: Legal: Ethical issues impacting care: Important Contacts -SonRichard, - [facility] -SonLukasz, - [facility], CareGiver/ friend [phone] Prognosis Prognosis guarded.History of a atrial fibrillation, currently in RVR. No history of being on anticoagulants. High risk for pulmonary embolism or sudden arrest Code Status: No Code Plan Decision Maker: She has no appointed health care surrogate decision making would be shared between her 2 sons Lukasz and Richard per [place] statutes Code Status: DNR Family Discussion: Spoke with patient at this time Symptoms: Pain, Dyspnea Palliative care phone number provided - will follow during hospital stay. Thank you for the opportunity to participate in the care of Ms. oGmez. Attestation To help prompt me to consider important information that might be impacting today's encounter and assessment, information from prior notes written by myself or my colleagues may have been "brought forward" into today's note. My signature on this note, however, is an attestation that I personally performed the exam, history, and/or decision-making noted today, and, unless otherwise indicated, the interactions with patient, family, and staff as well as the review of records all occurred today. I also attest that the listed assessment and stated plan reflect my best clinical judgment today based on the combination of historical information, prior notes, and today's exam/ interactions. When time spent is documented, it refers only to time spent today by the signer, or if indicated, combined time spent today by collaborating physician/nurse practitioner. Leatha Yañez May 12, 2016 09:57
--- NOTE | 2016-05-12 13:12 | HHI.PR ---
Subjective Remarks Follow-up paroxysmal atrial fibrillation with rapid ventricular response/status post mechanical fall/left orbital fracture/UTI 05/11/16-patient seen and examined, denies any chest pain or shortness of breath however currently in A. fib and on Cardizem drip 05/12/16-patient seen and examined, alert and oriented 3. Patient is having bout of runny diarrhea. Afebrile Objective Vitals Vital Signs Date Time Temp Pulse Resp B/P Pulse Ox O2 Delivery O2 Flow Rate FiO2 05/12/16 10:20 128 05/12/16 08:00 131 05/12/16 08:00 98.7 129 23 76/55 98 05/12/16 06:00 107 05/12/16 04:00 98.3 107 23 103/55 98 05/12/16 04:00 96 05/12/16 02:00 93 05/12/16 00:00 96 05/12/16 00:00 98.2 96 16 93/50 96 05/11/16 22:00 93 05/11/16 20:00 96 05/11/16 20:00 97.7 95 20 114/48 97 05/11/16 18:00 97 05/11/16 16:00 123 05/11/16 16:00 98.4 122 18 100/52 99 05/11/16 14:31 92 I/O 05/11/16 05/11/16 05/11/16 05/12/16 05/12/16 05/12/16 07:00 15:00 23:00 07:00 15:00 23:00 Intake Total 661 ml 700 ml 2091 ml 1243 ml Output Total 300 ml 450 ml 1850 ml 1300 ml Balance 361 ml 250 ml 241 ml -57 ml Intake Oral 480 ml IV Total 661 ml 700 ml 2091 ml 763 ml Output Urine Total 300 ml 450 ml 1150 ml 400 ml Stool Total 700 ml 900 ml # Bowel Movements 0 0 3 Result Diagram: 05/12/16 0351 05/12/16 0351 Imaging Last Impressions Chest X-Ray 05/11/16 0000 Signed Impressions: Service Date/Time: April 03:13 - CONCLUSION: No acute cardiopulmonary disease identified. Ranjeet Lopez MD Ankle X-Ray 05/11/16 0000 Signed Impressions: Service Date/Time: April 12:41 - CONCLUSION: Degenerative changes, osteopenia, without fracture. Fuentes Pal MD FACR Tibia/Fibula X-Ray 05/10/161436 Signed Impressions: Service Date/Time: Tuesday, May 10, 2016 15:21 - CONCLUSION: No acute disease. Gt Sosa MD Maxillofacial CT 05/10/161436 Signed Impressions: Service Date/Time: Tuesday, May 10, 2016 15:59 - CONCLUSION: Left lateral orbital wall and orbital floor fractures with associated subcutaneous hematoma. No other significant abnormality. Jordan Carlin MD Knee X-Ray 05/10/161436 Signed Impressions: Service Date/Time: Tuesday, May 10, 2016 15:23 - CONCLUSION: No acute disease. Gt Sosa MD Head CT 05/10/161436 Signed Impressions: Service Date/Time: Tuesday, May 10, 2016 15:57 - CONCLUSION: Atrophy, old infarcts. Facial bones CT is pending. Fuentes Pal MD FACR Femur X-Ray 05/10/161436 Signed Impressions: Service Date/Time: Tuesday, May 10, 2016 15:17 - CONCLUSION: No acute abnormalities seen. Gt Sosa MD Cervical Spine CT 05/10/161436 Signed Impressions: Service Date/Time: Tuesday, May 10, 2016 15:58 - CONCLUSION: Degenerative changes as described above. Fracture is not appreicated. Fuentes Pal MD FACR Objective Remarks GENERAL: ANd SKIN: Warm and dry. HEAD: Normocephalic. EYES: No scleral icterus. No injection or drainage. Ecchymose left NECK: Supple, trachea midline. No JVD or lymphadenopathy. CARDIOVASCULAR: Irregular Regular rate and rhythm without murmurs, gallops, or rubs. RESPIRATORY: Breath sounds equal bilaterally. No accessory muscle use. GASTROINTESTINAL: Abdomen soft, non-tender, nondistended. MUSCULOSKELETAL: No cyanosis, or edema. BACK: Nontender without obvious deformity. No CVA tenderness. A/P Problem List: (1) Atrial fibrillation with RVR ICD Code: I48.91 Status: Acute (2) CHILO (acute kidney injury) ICD Code: N17.9 Status: Acute (3) Rhabdomyolysis ICD Code: M62.82 Status: Acute (4) Orbital floor fracture ICD Code: S02.30XA Status: Acute Assessment and Plan 70-year-old female with Fall-status post mechanical fall History of stroke CT brainatrophy. Old right temporal and left parieto-occipital infarcts. No acute abnormality CT C-spineno acute fracture Continue pain management accordingly PT consult to treat and eval Paroxysmal Atrial fibrillation with RVR ACS ruled out per protocol with serial cardiac enzyme and EKG Currently on Cardizem drip, digoxin 0.125 every 48 and monitor level pending 2- D echo. Appreciate input from cardiology and recommended medical management Not a candidate for oral anticoagulation secondary to increased risk of fall, start aspirin for stroke prevention Sotalol contraindicated secondary to QTc Palliative care medicine consulted Acute kidney injury Lactic acidemia Elevated CK-rhabdomyolysis Lactic acidosis cleared Continue IV fluid hydration Monitor CK UTI continue Rocephin 1 g daily pending urine culture Acute L knee pain Xray left hip - no fracture Xray left knee - no fracture Ankle x-ray-no fracture MRI contraindicated L knee immobilizer Acute fracture left lateral orbit and orbital floor, no clinical evidence of entrapment on exam. Facial trauma consult and will see patient next week Sunday. Ophthalmology recommendation appreciated Diarrhea: C. difficile PCR negative, continue with IV fluid hydration along with Imodium. Check stool for ova and parasite PROPH: Protonix 40 mg PO daily for stress ulcer prophylaxis. Heparin 5000 units subcutaneous every 12 hours for DVT prophylaxis. Problem Qualifiers (1) Rhabdomyolysis: Qualified Code: M62.82 - Non-traumatic rhabdomyolysis (2) Orbital floor fracture: Qualified Code: S02.32XA - Closed fracture of left orbital floor, initial encounter Guillermo Dumont MD May 12, 2016 13:12
--- NOTE | 2016-05-12 14:50 | DEATH SUM ---
Pronouncement Date Pronounced : May 12, 2016 Time Of : 14:12 Pronouncement Called to pronounce of patient. Identified patient as Isha Gomez with wrist band MR# [id number]. Patient with no cardiac activity in 2 separate leads and no palpable/auscible cardiac activity. Patient with no spontaneous respirations, no corneal reflex or response to painful stimuli. Pupils fixed and dilated. Preliminary Cause of : Cardiac arrest Guillermo Dumont MD May 12, 2016 14:50
--- NOTE | 2016-05-12 15:21 | EKG ---
Date Performed: 05/11/2016 Time Performed: 16:36:33 PTAGE: 70 years EKG: ATRIAL FIBRILLATION RIGHT BUNDLE BRANCH BLOCK ABNORMAL ECG PREVIOUS TRACING : 05/11/2016 10.07 Compared to prior tracing no significant change DOCTOR: Celina Henning Interpretating Date/Time 05/12/2016 15:21:22
--- NOTE | 2016-05-12 15:22 | EKG ---
Date Performed: 05/11/2016 Time Performed: 21:11:51 PTAGE: 70 years EKG: ATRIAL FIBRILLATION RIGHT BUNDLE BRANCH BLOCK ABNORMAL ECG PREVIOUS TRACING : 05/11/2016 16.36 Compared to prior tracing no significant change DOCTOR: Celina Henning Interpretating Date/Time 05/12/2016 15:21:32
[2016-05-12] MEDS ORDERED: LACTOBACILLUS ACIDOPHILUS TAB PO SCH (21:00)
[2016-05-12] MEDS ORDERED: DIGOXIN 0.125 MG TAB PO SCH (22:00)
--- NOTE | 2016-06-03 16:14 | HHI.DS ---
Discharge Summary Admission Date May 10, 2016 at 18:47 Discharge Date: May 12, 2016 Admitting Diagnosis AF w/ RVR, CHILO, Rhabdomyolysis, Left Orbital Floor Fractures, Fall (1) Atrial fibrillation with RVR ICD Code: I48.91 (2) CHILO (acute kidney injury) ICD Code: N17.9 (3) Rhabdomyolysis ICD Code: M62.82 (4) Orbital floor fracture ICD Code: S02.30XA Procedures none Brief History - From Admission 70 yo female with past medical history of atrial fibrillation, prior stroke. She is not on chronic anticoagulation. She was walking down the sidewalk when she fell and injured her left knee. She walks with a cane at baseline and she continued to try to ambulate to her home. She lives alone. He states that she then tried to continue to ambulate better to her "knee gave out" and she fell to the floor. Her friend then came to the home and found her on the floor, disheveled, in the urine and feces. She was somewhat confused but was able to answer questions. Currently patient is able to answer all questions and her friend indicates that her mental status. Improved significantly since earlier in the day. Patient denies last of consciousness. She denies chest pain, shortness of breath, palpitations. She is on digoxin for atrial fibrillation but has been unable to take her medications for a few days. She presents to the emergency department with A. fib RVR and hypertensive to 155/ 70. She did have a pressure of 202/138 but reportedly is in was in severe pain due to repositioning. Subsequent blood pressures have been in the 120s over 60s. ED workup included CT brain and C-spine which were negative. CT maxillofacial demonstrated the left lateral orbital wall and orbital floor fractures. There is no evidence of entrapment. X-ray of bilateral femur and tib-fib are negative. X-ray left knee is negative. Chest x-ray is clear PE at Discharge GENERAL: ANd SKIN: Warm and dry. HEAD: Normocephalic. EYES: No scleral icterus. No injection or drainage. Ecchymose left NECK: Supple, trachea midline. No JVD or lymphadenopathy. CARDIOVASCULAR: Irregular Regular rate and rhythm without murmurs, gallops, or rubs. RESPIRATORY: Breath sounds equal bilaterally. No accessory muscle use. GASTROINTESTINAL: Abdomen soft, non-tender, nondistended. MUSCULOSKELETAL: No cyanosis, or edema. BACK: Nontender without obvious deformity. No CVA tenderness. Hospital Course Patient on 05/12/16; however prior to this , she was treated for: Fall-status post mechanical fall History of stroke CT brainatrophy. Old right temporal and left parieto-occipital infarcts. No acute abnormality CT C-spineno acute fracture Continue pain management accordingly PT consult to treat and eval Paroxysmal Atrial fibrillation with RVR ACS ruled out per protocol with serial cardiac enzyme and EKG Currently on Cardizem drip, digoxin 0.125 every 48 and monitor level pending 2- D echo. Appreciate input from cardiology and recommended medical management Not a candidate for oral anticoagulation secondary to increased risk of fall, start aspirin for stroke prevention Sotalol contraindicated secondary to QTc Palliative care medicine consulted Acute kidney injury Lactic acidemia Elevated CK-rhabdomyolysis Lactic acidosis cleared Continue IV fluid hydration Monitor CK UTI continue Rocephin 1 g daily pending urine culture Acute L knee pain Xray left hip - no fracture Xray left knee - no fracture Ankle x-ray-no fracture MRI contraindicated L knee immobilizer Acute fracture left lateral orbit and orbital floor, no clinical evidence of entrapment on exam. Facial trauma consult and will see patient next week Sunday. Ophthalmology recommendation appreciated Diarrhea: C. difficile PCR negative, continue with IV fluid hydration along with Imodium. PROPH: Protonix 40 mg PO daily for stress ulcer prophylaxis. Heparin 5000 units subcutaneous every 12 hours for DVT prophylaxis. Pt Condition on Discharge: Guarded Discharge Disposition: Trnsfr to Other Facility Discharge Time: > 30 minutes Discharge Instructions Speech Therapy-Diet Recommends: Mechanical Soft, Chopped Meat w/Guillermo Marino MD Jun 03, 2016 16:14
== END 2016-05-12 14:12 | disposition expired | DRG 683 ==
LOC: NEPE 14:24 → NEDA 18:47 → HIME 05-11 00:20
PROVIDERS: ADMIT Hospitalist; ATTEND Hospitalist
PROC: 0T9B70Z Drainage of Bladder with Drainage Device, Via Natural or Artificial Opening (ICD-10-PCS; principal; 2016-05-10)
DX: N17.9 Acute kidney failure, unspecified (principal); E87.2 Acidosis; N39.0 Urinary tract infection, site not specified; S02.32XA Fracture of orbital floor, left side, initial encounter for closed fracture; R64 Cachexia; M62.82 Rhabdomyolysis; I42.9 Cardiomyopathy, unspecified; I48.0 Paroxysmal atrial fibrillation; I10 Essential (primary) hypertension; E86.0 Dehydration; I69.354 Hemiplegia and hemiparesis following cerebral infarction affecting left non-dominant side; I08.3 Combined rheumatic disorders of mitral, aortic and tricuspid valves; E78.00 Pure hypercholesterolemia, unspecified; F17.200 Nicotine dependence, unspecified, uncomplicated; M19.90 Unspecified osteoarthritis, unspecified site; K44.9 Diaphragmatic hernia without obstruction or gangrene; Z96.642 Presence of left artificial hip joint; Z88.0 Allergy status to penicillin; Z88.8 Allergy status to other drugs, medicaments and biological substances; R00.0 Tachycardia, unspecified; W18.30XA Fall on same level, unspecified, initial encounter; Y93.01 Activity, walking, marching and hiking; Y92.009 Unspecified place in unspecified non-institutional (private) residence as the place of occurrence of the external cause; M25.562 Pain in left knee; Z66 Do not resuscitate; S00.83XA Contusion of other part of head, initial encounter; S80.02XA Contusion of left knee, initial encounter; Z51.5 Encounter for palliative care; R19.7 Diarrhea, unspecified; I46.9 Cardiac arrest, cause unspecified
CPT/HCPCS: 70450; 70486; 71010; 72125; 73552; 73564; 73590; 73610; 80048; 80053; 80162; 81001; 82550; 82552; 83605; 83735; 83880; 84100; 84443; 84484; 85025; 85610; 85730; 87040; 87077; 87086; 87186; 87328; 87329; 87493; 87641; 90715; 93005; 93306; 96365; 96376; J0696; J1160; J1644; J2270; J2405; J7030; J7121; L0150; L1830